=== PATIENT | female | born 1950 | race Caucasian/White ===

== ENCOUNTER 2018-09-19 19:17 | Inpatient (IN) | payer MEDICARE, OTHER ==
[~2018-09-19] VITALS: Ht 170.2 cm; Wt 117.5 kg
--- NOTE | 2018-09-19 20:14 | PHYS DOC ---
Adult General Chief Complaint Chief Complaint: PSYCH EVALUATION HPI HPI Patient is a 68-year-old female who presents for medical clearance for [facility]. Nursing facility the patient presents from reportedly is seeking some adjustment the patient's medications. Patient denies any thoughts of self-harm or harming others. She denies any chest pain or shortness of breath. Additional history is somewhat limited as patient is poor historian.[] Review of Systems Review of Systems Constitutional: Denies fever or chills [] Respiratory: Denies cough or shortness of breath [] Cardiovascular: No additional information not addressed in HPI [] GI: Denies abdominal pain, nausea, vomiting or diarrhea [] Neurologic: Denies headache, focal weakness or sensory changes [] All other systems were reviewed and found to be within normal limits, except as documented in this note. Physical Exam Physical Exam Constitutional: Well developed, well nourished, no acute distress, non-toxic appearance. [] HENT: Normocephalic, atraumatic, bilateral external ears normal, oropharynx moist, no oral exudates, nose normal. [] Eyes: PERRLA, EOMI, conjunctiva normal, no discharge. [] Neck: Normal range of motion, no tenderness, supple, no stridor. [] Cardiovascular: Regular rate and rhythm[] Lungs & Thorax: Bilateral breath sounds clear to auscultation [] Abdomen: Bowel sounds normal, soft, no tenderness. [] Skin: Warm, dry, no erythema, no rash. [] Extremities: No tenderness, no cyanosis, no clubbing, ROM intact. [] Neurologic: Alert and oriented X 3, no focal deficits noted. [] EKG EKG EKG demonstrates normal sinus rhythm with rate of 78.[] Radiology/Procedures Radiology/Procedures [] Course & Med Decision Making Course & Med Decision Making Pertinent Labs and Imaging studies reviewed. (See chart for details) [] Dragon Disclaimer Dragon Disclaimer This electronic medical record was generated, in whole or in part, using a voice recognition dictation system. Departure Departure: Impression: Primary Impression: Medical clearance for psychiatric admission Disposition: ADMITTED INPATIENT Admitting Physician: Other (Dr. Fofana) Condition: STABLE Referrals: KRISTI WASHINGTON DO (PCP) CYRIL LIMA Jr., DO September 19, 2018 20:14
[2018-09-19 20:46] LABS: BASO # 0.1 x10^3/uL (0.0-0.2); BASO % 1 % (0-3); EOS # 0.1 x10^3/uL (0.0-0.7); EOS % 1 % (0-3); HEMATOCRIT 41.8 % (36.0-47.0); HEMOGLOBIN 13.1 g/dL (12.0-15.5); LYMPH # 1.4 x10^3/uL (1.0-4.8); LYMPH % 14 % (24-48); MEAN CORPUSCULAR HEMOGLOBIN 26 pg (25-35); MEAN CORPUSCULAR HGB CONC 31 g/dL (31-37); MEAN CORPUSCULAR VOLUME 83 fL (79-100); MONO # 0.7 x10^3/uL (0.0-1.1); MONO % 8 % (0-9); NEUT # 7.4 x10^3uL (1.8-7.7); NEUT % 76 % (31-73); PLATELET COUNT 237 x10^3/uL (140-400); RED BLOOD COUNT 5.05 x10^6/uL (3.50-5.40); RED CELL DISTRIBUTION WIDTH 17.9 % (11.5-14.5); WHITE BLOOD COUNT 9.7 x10^3/uL (4.0-11.0)
--- NOTE | 2018-09-19 20:59 | EKG ---
[address] [address] Test Date: 2018-09-19 Test Time: 20:13:01 Pat Name: KADE ELIZONDO Department: Room: Gender: F [employer] Consultant: : [id number] Requested By: CYRIL LIMA Order Number: [id number] Reading MD: Measurements Intervals [place] Rate: 78 P: 35 ND: 182 QRS: 16 QRSD: 86 T: 74 QT: 380 QTc: 437 Interpretive Statements SINUS RHYTHM QRS(T) CONTOUR ABNORMALITY CONSIDER ANTEROLATERAL MYOCARDIAL DAMAGE POSSIBLY ABNORMAL ECG RI6.01 No previous ECG available for comparison
[2018-09-19 21:02] LABS: ALBUMIN 3.3 g/dL (3.4-5.0); ALBUMIN/GLOBULIN RATIO 0.7 (1.0-1.7); CALCIUM 9.2 mg/dL (8.5-10.1); CREATININE 1.1 mg/dL (0.6-1.0); GFR 49.1; POTASSIUM 3.6 mmol/L (3.5-5.1); TOTAL BILIRUBIN 0.2 mg/dL (0.2-1.0); TOTAL PROTEIN 7.9 g/dL (6.4-8.2)
[2018-09-19 21:35] LABS: BARBITURATES NEG (NEG); BENZODIAZEPINES NEG (NEG); CANNABINOIDS NEG (NEG); COCAINE NEG (NEG); METHADONE NEG (NEG); OPIATES NEG (NEG); PHENCYCLIDINE NEG (NEG)
[2018-09-19 21:42] LABS: AMPHETAMINE/METHAMPHETAMINE NEG (NEG)
[2018-09-19 21:51] LABS: BILIRUBIN,URINE NEG (NEG); CLARITY,URINE HAZY; COLOR,URINE YELLOW; GLUCOSE,URINE NEG (NEG); NITRITE,URINE NEG (NEG); UROBILINOGEN,URINE 0.2 mg/dL (0.2 mg/dL)
[2018-09-19 21:52] LABS: BACTERIA,URINE 0 /HPF (0-FEW); HYALINE CASTS, URINE OCC /HPF; RBC,URINE 0 /HPF (0-2); SQUAMOUS EPITHELIAL CELL,UR OCC /LPF
[2018-09-19 22:50] VITALS: BP 141/86
[2018-09-19] MEDS ORDERED: MAG HYDROX/AL HYDROX/SIMETH 30 ML ORAL.SUSP PO PRN (23:15)
[2018-09-19] MEDS ORDERED: MAGNESIUM HYDROXIDE 2,400 MG/30 ML ORAL.SUSP. PO PRN (23:15)
[2018-09-19] MEDS ORDERED: METHYL SALICYLATE/MENTHOL TOPICAL OINTMENT 29GM TUBE. TP PRN (23:15)
[2018-09-19] MEDS ORDERED: ACETAMINOPHEN 325 MG TABLET PO PRN (23:15)
--- NOTE | 2018-09-19 23:29 | NUR ---
Admission Note with Justification for Admission to [facility] Patient admitted to [facility] for protective oversight for emergency stabilization of acute psychiatric crisis. Pt admitted from: Hospital ER Mode of arrival: EMS Accompanied By: [facility] Staff Precipitating behaviors that initiated intake and admission:Refusing to do cares on own, hitting head on wall. Argumentative, putting self on floor. Description of failure of out patient attempts at stabilization in previous setting list behavior and medication trials: Behaviors and assessment findings upon admission: Plan: Admit for protective oversight for adjustment and stabilization of medications, behaviors and mood. Intense treatment regimen including groups, medication adjustments, therapy, consistent regimen for ADL's, self care, and sleep hygiene. Daily monitoring by Inpatient staff, Psychiatry, and Medical Physician. Addendum: 09/19/18 at 2338 by TAYO VELASCO RN Description of failure of out patient attempts at stabilization in previous setting list behavior and medication trials:Treated UTI, SW Visit, Labs Behaviors and assessment findings upon admission: Patient was compliant with cares and assessment upon arrival. The patient is alert to location, date and self. The patient requested a box lunch. The patient is currently laying in bed eating. Plan: Admit for protective oversight for adjustment and stabilization of medications, behaviors and mood. Intense treatment regimen including groups, medication adjustments, therapy, consistent regimen for ADL's, self care, and sleep hygiene. Daily monitoring by Inpatient staff, Psychiatry, and Medical Physician.
[2018-09-20] MEDS ORDERED: IPRA3AMP29 NEB ×2 (00:23→00:24)
[2018-09-20] MEDS ORDERED: PREG50CA PO (00:24)
[2018-09-20] MEDS ORDERED: ASPI-630 PO (00:24)
[2018-09-20] MEDS ORDERED: ONDA4TAB7 PO (00:24)
[2018-09-20] MEDS ORDERED: LEVO200T5 PO (00:24)
[2018-09-20] MEDS ORDERED: INSU100I27 SQ (00:24)
[2018-09-20] MEDS ORDERED: LEVO50TA5 PO (00:24)
[2018-09-20] MEDS ORDERED: INSU100I17 SQ (00:24)
[2018-09-20] MEDS ORDERED: FURO40TA4 PO (00:24)
[2018-09-20] MEDS ORDERED: VENL150C PO (00:24)
[2018-09-20] MEDS ORDERED: BACL10TA PO (00:24)
[2018-09-20] MEDS ORDERED: SITA100T PO (00:24)
[2018-09-20] MEDS ORDERED: CARB1TAB47 PO (00:24)
[2018-09-20] MEDS ORDERED: FAMO20TA5 PO (00:24)
[2018-09-20] MEDS ORDERED: ACET500T68 PO (00:24)
[2018-09-20] MEDS ORDERED: SALI44.3 MM (00:24)
[2018-09-20] MEDS ORDERED: CAPS42.52 TP (00:24)
[2018-09-20] MEDS ORDERED: FEXO180T16 PO (00:24)
[2018-09-20] MEDS ORDERED: MULT-236 PO (00:24)
[2018-09-20] MEDS ORDERED: APIX2.5T PO (00:24)
[2018-09-20] MEDS ORDERED: POTA10TA10 PO (00:24)
[2018-09-20] MEDS ORDERED: MELO15TA23 PO (00:24)
[2018-09-20] MEDS ORDERED: UMEC62.5 IH (00:24)
[2018-09-20] MEDS ORDERED: GUAI5SYR PO (00:24)
[2018-09-20] MEDS ORDERED: VENL75CA PO (00:24)
[2018-09-20] MEDS ORDERED: MAG30ORA2 PO (00:24)
[2018-09-20] MEDS ORDERED: DEXT15DR5 OP (00:24)
[2018-09-20] MEDS ORDERED: ALBUTEROL SULFATE 2.5 MG/3 ML NEBU. NEB PRN (00:45)
[2018-09-20] MEDS ORDERED: guaiFENesin DM 200MG/20MG 10 ML SYRUP PO PRN (00:45)
[2018-09-20] MEDS ORDERED: ONDANSETRON ODT 4 MG TAB.RAPDIS PO PRN (00:45)
[2018-09-20] MEDS ORDERED: MAG HYDROX/AL HYDROX/SIMETH 30 ML ORAL.SUSP PO PRN (00:45)
[2018-09-20] MEDS ORDERED: POLYVINYL ALCOHOL 1.4% OPHTH SOLUTION 15ML BOTTLE. OU PRN (02:00)
[2018-09-20] MEDS ORDERED: CAPSAICIN 0.025% TOPICAL CREAM 60GM TUBE. TP PRN (02:00)
[2018-09-20] MEDS: LEVOTHYROXINE 50 MCG TABLET PO SCH (05:35)
[2018-09-20] MEDS: LEVOTHYROXINE 100 MCG TABLET PO SCH (05:35)
[2018-09-20 06:21] VITALS: BP 159/83
[2018-09-20] MEDS: IPRATRPIUM/ALBUTEROL 0.5/2.5MG 3 ML NEBU. NEB SCH ×4 (08:00→20:32)
[2018-09-20] MEDS: MULTIVITAMIN with MINERAL TABLET. PO SCH ×2 (08:15→20:29)
[2018-09-20] MEDS: APIXABAN 2.5 MG TABLET PO SCH ×2 (08:15→20:29)
[2018-09-20] MEDS: FUROSEMIDE 40 MG TABLET PO SCH (08:15)
[2018-09-20] MEDS: POTASSIUM CHLORIDE 10 MEQ TABLET.ER. PO SCH (08:15)
[2018-09-20] MEDS: VENLAFAXINE 75 MG TABLET. PO SCH ×3 (08:15→20:30)
[2018-09-20] MEDS: ASPIRIN 81 MG TAB.CHEW PO SCH (08:15)
[2018-09-20] MEDS: CARBIDOPA/LEVODOPA 25/100MG TABLET PO SCH ×4 (08:16→20:29)
[2018-09-20] MEDS: PREGABALIN 50 MG CAPSULE PO SCH ×3 (08:16→20:29)
[2018-09-20] MEDS: BACLOFEN 10 MG TABLET PO SCH ×2 (08:16→20:29)
[2018-09-20] MEDS: MELOXICAM 15 MG TABLET. PO SCH (08:16)
[2018-09-20] MEDS: LINAGLIPTIN 5 MG TABLET PO SCH (08:16)
[2018-09-20] MEDS: INSULIN LISPRO 300 UNITS/3 ML INSULN.PEN. SQ SCH ×3 (08:19→17:22)
[2018-09-20] MEDS: SALIVA STIMULANT AGENT 44ML SPRAY BOTTLE. MM SCH ×5 (08:19→20:30)
[2018-09-20] MEDS: INSULIN GLARGINE 300 UNITS/3 ML INSULN.PEN. SQ SCH ×2 (08:28→20:34)
[2018-09-20] MEDS ORDERED: NON FORMULARY ITEM (Venlafaxine Hcl (Effexor Xr) 150 MG) PO SCH (09:00)
[2018-09-20] MEDS ORDERED: NON FORMULARY ITEM (Umeclidinium Bromide (Incruse Ellipta) 62.5 MCG) IH SCH (09:00)
[2018-09-20] MEDS ORDERED: NON FORMULARY ITEM (Venlafaxine Hcl (Effexor Xr) 75 MG) PO SCH (09:00)
--- NOTE | 2018-09-20 11:14 | NUR ---
PSYCHOSOCIAL ASSESSMENT ADMISSION DATE: 09/19/18 CONTACT INFORMATION: DPOA/Guardian Contact Name: None Contact Address: Contact Phone #: ETHNIC ORIGIN: REASONS FOR ADMISSION: Agitated, Self Harm, and Poor Impulse Control ADDITIONAL ADMISSION COMMENTS: Per pt. intake, pt. was hitting head against the wall when staff encouraged her to do her own ADLs, argumentative, puts herself on floor when she doesn't get her way, hits herself in the head, and agitated. REASON FOR ADMISSION IN PATIENT/FAMILY'S OWN WORDS: Pt. stated, "I don't know." "They just said they wanted me to come to [place]." "I didn't want to go." "I was just upset with this one." "I just verbally got upset." PATIENT/FAMILY EXPECTATIONS FOR ADMISSION: Per pt., "To see if there is anything I'm taking that I shouldn't be." LIVING SITUATION: [facility] Contact Name: [facility] Contact Address: [address] [place] [address] Contact Phone #: [phone] Contact Fax #: [phone] FAMILY RELATIONS: Marital Status: Single # of Marriages: 0 # of Children: 0 [facility] Family Support: Additional Comments r/t Family: SIGNIFICANT PSYCHIATRIC/MEDICAL HISTORY: Psychiatric/Treatment History: Pt. reports she has "ADHD, persistent anxieties, and depression." She reports she was diagnosed "a long time ago." She shared "a year or two ago" she had inpatient treatment at "[facility]" for "three weeks". Pertinent Family History: "I think my dad did." She then clarified she believes he had both anxiety and depression. HISTORICAL DATA: Childhood Environment: "Lousy, because everybody thought my brother was good and I wasn't." Pt. reports she grew up on a "farm" with her mother, father, and brother. Pt. brother is still living in [place], [place], and the two have a "good" relationship. 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 went on to share she grew up attending "[employer]" and "[employer]." Sexual orientation: Heterosexual Educational Level: Pt. reports she graduated from "[employer]" with a "BGS in human development." Past/Present Interests/Hobbies: Pt. interest include "Christy" her stuffed monkey and shared she also has a baby doll named "Christy" and "working on my tablet." Financial support/resources: Disability Monthly income: Unknown - Pt. reports she has $62.00 a month after her facility takes out their portion. "That's not enough to live on." Person handling finances: Staff at [facility] Do you have a history of legal problems: N Cultural considerations: None SOCIAL RELATIONSHIPS-CURRENT/PAST: Psychiatrist: None PCP: Dr. Putnam Counselor/Therapist: Carmenza [facility]: None Support Group: None Department Sales Manager/Heel Boom Operator: NATHALIE Larkin at [facility] Other relationships: None STRENGTHS & WEAKNESSES: Patient's strengths: Good verbal skills, Stable living arrangement, Education level, and Approachable Patient's weaknesses: Impulsive and a Harm to Self PRELIMINARY PLAN OF TREATMENT: Preliminary plan: Promote Coping Skill, Medication Stabilization, Monitor Med Effects, Control abnormal behavior, and Decrease Outbursts DISCHARGE PLANNING: Discharge planning/disposition: Current Living Arrangement ADDITIONAL INFORMATION: Pt. was able to supply the information for this assessment. Pt. shared, "For me to have the best diabetic test done, I need to have breakfast at a certain time." She requested she have breakfast between 8:00 and 8:30. Pt. 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
--- NOTE | 2018-09-20 12:02 | NUR ---
NATHALIE left msg. for NATHALIE Larkin at [facility], to share contact information and pt. progress.
[2018-09-20 12:50] LABS: THYROID STIM HORMONE (TSH) 10.634 uIU/mL (0.358-3.740)
--- NOTE | 2018-09-20 13:31 | NUR ---
Nursing Note Pt was in dining room this am for assessment and medication administration. pt was compliant with her medications but wanted them read one by one and what they are for told to her. went over the medications with her, and pt took them with pudding with no problems. pt states she has to have the pudding to be able to swallow the pills. pt states her hands are shaky and she complains that she cannot eat or feed herself at times and wants staff to feed her. pt is capable of doing it herself per physical therapy. pt has a monkey (monica) that she keeps and states its her "baby girl". pt states she is allergic to artificial sugar and states the only snack she can have is fruit loops. Per physical therapy, notes from facility state pt is independent doing things such as putting on her clothing, standing up and wiping her bottom herself, and that it is a behavior that she says she cannot do it. pt needs encouragement to do things herself. today pt was in restroom and urinated, and states she needs to be wiped. handed pt wet wipes and pt states she doesnt do it good enough. encouraged pt to try again and eventually she got it cleaned up herself. pt has scab on her right lateral foot that was cleaned and covered with foam today. pt has bilateral edema. pt gets agitated when asked to do things. no other behaviors noted thus far. will continue to monitor. freddy hicks.
[2018-09-20 16:08] VITALS: BP 138/88
[2018-09-20 19:07] LABS: THYROXINE 8.9 ug/dL (4.5-12.0)
[2018-09-20] MEDS: CETIRIZINE HCL 10 MG TABLET PO SCH (20:31)
[2018-09-20] MEDS: FAMOTIDINE 20 MG TABLET PO SCH (20:31)
--- NOTE | 2018-09-20 22:02 | PDOC ---
Exam Note: Bryce Note: Please also refer to the separate dictated note~for this date of service dictated separately. Discussed the patient with Nursing staff reviewed the chart.~Reviewed interim history and current functioning. Reviewed vital signs,~Labs/ Radiology~and current medications noted below. Continue current treatment with the changes noted in the dictated addendum note Assessment: Vital Signs: Vital Signs Date Time Temp Pulse Resp B/P (MAP) Pulse Ox O2 Delivery O2 Flow Rate FiO2 09/20/18 20:35 96 Room Air 09/20/18 16:08 97.6 91 22 138/88 (105) I&O Intake and Output 09/20/18 07:00 # Voids 1 Labs: Laboratory Tests Test 09/20/18 06:35 09/20/18 07:22 09/20/18 11:23 09/20/18 17:18 Glucose (Fingerstick) 189 mg/dL (70-99) H 174 mg/dL (70-99) H 195 mg/dL (70-99) H 163 mg/dL (70-99) H Test 09/20/18 19:29 Glucose (Fingerstick) 194 mg/dL (70-99) H Current Medications: Meds: Current Medications Acetaminophen (Tylenol) 650 mg PRN Q6HRS PRN PO PAIN / TEMP; Start 09/19/18 at 23:15; Stop 09/20/18 at 01:50; Status DC Multi-Ingredient Ointment (Analgesic [place]) 1 wilfredo PRN QID PRN TP MUSCLE PAIN; Start 09/19/18 at 23:15 Al Hydroxide/Mg Hydroxide (Mylanta Plus Xs) 15 ml PRN AFTMEALHC PRN PO DYSPEPSIA; Start 09/19/18 at 23:15; Stop 09/20/18 at 07:15; Status DC Magnesium Hydroxide (Milk Of Magnesia) 2,400 mg PRN QHS PRN PO CONSTIPATION; Start 09/19/18 at 23:15 Non-Formulary Medication (Venlafaxine Hcl (Effexor Xr)) 75 mg DAILY PO ; Start 09/20/18 at 09:00; Stop 09/20/18 at 09:00; Status DC Non-Formulary Medication (Venlafaxine Hcl (Effexor Xr)) 150 mg DAILY PO ; Start 09/20/18 at 09:00; Stop 09/20/18 at 09:00; Status DC Apixaban (Eliquis) 2.5 mg BID PO Last administered on 09/20/18at 20:29; Start 09/20/18 at 09:00 Guaifenesin (Robitussin Dm) 10 ml PRN Q4HRS PRN PO COUGH; Start 09/20/18 at 00:45 Albuterol Sulfate (Ventolin) 2.5 mg PRN TID PRN NEB SHORTNESS OF BREATH; Start 09/20/18 at 00:45 Albuterol/ Ipratropium (Duoneb) 3 ml RTQID NEB Last administered on 09/20/18at 20:32; Start 09/20/18 at 08:00 Al Hydroxide/Mg Hydroxide (Mylanta Plus Xs) 15 ml PRN Q4HRS PRN PO DYSPEPSIA; Start 09/20/18 at 00:45 Pregabalin (Lyrica) 50 mg TID PO Last administered on 09/20/18 20:29; Start 09/20/18 at 09:00 Saliva Substitute (Biotene Moisturizing Mouth) 1 spray QID MM ; Start 09/20/18 at 09:00 Acetaminophen (Tylenol) 500 mg PRN Q4HRS PRN PO PAIN / TEMP; Start 09/20/18 at 00:45 Aspirin (Children'S Aspirin) 81 mg DAILYWBKFT PO Last administered on 09/20/18at 08:15; Start 09/20/18 at 08:00 Baclofen (Lioresal) 10 mg BID PO Last administered on 09/20/18at 20:29; Start 09/20/18 at 09:00 Capsaicin (Zostrix) 1 wilfredo PRN BID PRN TP PAIN; Start 09/20/18 at 02:00 Carbidopa/Levodopa (Sinemet 25/100) 1.5 tab QID PO Last administered on 09/20/18at 20:29; Start 09/20/18 at 09:00 Artificial Tears (Artificial Tears) 1 drop PRN QID PRN OU DRY EYES; Start 09/20/18 at 02:00 Famotidine (Pepcid) 20 mg QHS PO Last administered on 09/20/18at 20:31; Start 09/20/18 at 21:00 Cetirizine HCl (ZyrTEC) 10 mg QHS PO Last administered on 09/20/18 20:31; Start 09/20/18 at 21:00 Furosemide (Lasix) 40 mg DAILY PO Last administered on 09/20/18 08:15; Start 09/20/18 at 09:00 Insulin Human Lispro (HumaLOG) 16 units TIDAC SQ Last administered on 09/20/18 17:22; Start 09/20/18 at 07:30 Insulin Glargine (Lantus) 28 units BID SQ Last administered on 09/20/18 20:34; Start 09/20/18 at 09:00 Levothyroxine Sodium (Synthroid) 50 mcg DAILY06 PO Last administered on 09/20/18 05:35; Start 09/20/18 at 06:00 Levothyroxine Sodium (Synthroid) 200 mcg DAILY06 PO Last administered on 09/20/18 05:35; Start 09/20/18 at 06:00 Meloxicam (Mobic) 15 mg DAILY PO Last administered on 09/20/18 08:16; Start 09/20/18 at 09:00 Multivitamins/ Calcium (Thera-M Plus) 1 tab BID PO Last administered on 09/20/18 20:29; Start 09/20/18 at 09:00 Ondansetron HCl (Zofran Odt) 4 mg PRN TID PRN PO NAUSEA; Start 09/20/18 at 00:45 Potassium Chloride (Klor-Con) 10 meq DAILYWBKFT PO Last administered on 09/20/18 08:15; Start 09/20/18 at 08:00 Linagliptin (Tradjenta) 5 mg DAILY PO Last administered on 09/20/18 08:16; Start 09/20/18 at 09:00 Non-Formulary Medication (Umeclidinium [place] (Incruse Ellipta)) 62.5 mcg DAILY IH ; Start 09/20/18 at 09:00; Stop 09/20/18 at 09:00; Status DC Venlafaxine HCl (Effexor) 75 mg TID PO Last administered on 09/20/18 20:30; Start 09/20/18 at 09:00 Active Scripts Active Reported Arthritis Pain Relief (Capsaicin) 42.5 Gm Cream..g. 42.5 Gm TP PRN BID PRN Guaifenesin Dm Syrup (Guaifenesin/Dextromethorphan) 5 Ml Syrup 10 Ml PO PRN Q4HRS PRN Zofran (Ondansetron Hcl) 4 Mg Tablet 4 Mg PO PRN TID PRN Mag-Al Plus Xs Suspension (Mag Hydrox/Al Hydrox/Simeth) 30 Ml Oral.susp 15 Ml PO PRN Q4HRS PRN Artificial Tears Eye Drops (Dextran 70/Hypromellose) 15 Ml Drops 1 Drop OP PRN QID PRN Acetaminophen 500 Mg Tablet 500 Mg PO PRN Q4HRS PRN Duoneb 0.5-3(2.5) Mg/3 Ml (Albuterol/Ipratropium) 3 Ml Ampul.neb 3 Ml NEB PRN TI D PRN Effexor Xr (Venlafaxine Hcl) 75 Mg Cap.er.24h 75 Mg PO DAILY Effexor Xr (Venlafaxine Hcl) 150 Mg Cap.er.24h 150 Mg PO DAILY Potassium Chloride 10 Meq Tablet.er 10 Meq PO DAILY Meloxicam 15 Mg Tablet 15 Mg PO DAILY Lyrica (Pregabalin) 50 Mg Capsule 50 Mg PO TID Levothyroxine Sodium 50 Mcg Tablet 50 Mcg PO DAILYAC Levothyroxine Sodium 200 Mcg Tablet 200 Mcg PO DAILYAC Januvia (Sitagliptin Phosphate) 100 Mg Tablet 100 Mg PO DAILY Incruse Ellipta (Umeclidinium [place]) 62.5 Mcg Blst.w.dev 62.5 Mcg IH DAILY Furosemide 40 Mg Tablet 40 Mg PO DAILY Fexofenadine Hcl 180 Mg Tablet 60 Mg PO QHS Famotidine 20 Mg Tablet 20 Mg PO QHS Eliquis (Apixaban) 2.5 Mg Tablet 2.5 Mg PO BID Daily Vitamin + Iron (Multivitamins With Iron) 1 Each Tablet 1 Each PO BID Carbidopa-Levo 25-100 Mg Odt (Carbidopa/Levodopa) 1 Each Tab.rapdis 1.5 Tab PO QID Biotene Moisturizing Mouth (Saliva Stimulant Agents Comb.3) 44.3 Ml [place] 1 Wilfredo MM QID Baclofen 10 Mg Tablet 10 Mg PO BID Aspirin 81 Mg Tab.chew 81 Mg PO DAILY Novolog Flexpen (Insulin Aspart) 100 Unit/1 Ml Insuln.pen 16 Unit SQ TIDAC Levemir Flextouch (Insulin Detemir) 100 Unit/1 Ml Insuln.pen 28 Unit SQ BID Duoneb 0.5-3(2.5) Mg/3 Ml (Albuterol/Ipratropium) 3 Ml Ampul.neb 3 Ml NEB QID I have reviewed the current psychotropics carefully including drug interactions. Risk benefit ratio favors no change other than as noted in my dictated progress note. Diagnosis: Problems: (1) Anxiety disorder (2) Major depressive disorder, recurrent episode (3) Impulse control disorder (4) Parkinson's disease MONICA MCWILLIAMS MD September 20, 2018 22:02
--- NOTE | 2018-09-20 22:41 | NUR ---
Nursing Note The patient was located in the day room for her assessment and medication pass. The patient was compliant with her medication and took them whole in chocolate pudding. the patient was appropriate during interactions and was very interactive and pleasant during her assessment. The patient is currently sleeping in her room.
[2018-09-21] MEDS: LEVOTHYROXINE 100 MCG TABLET PO SCH (05:35)
[2018-09-21] MEDS: LEVOTHYROXINE 50 MCG TABLET PO SCH (05:35)
[2018-09-21] MEDS: IPRATRPIUM/ALBUTEROL 0.5/2.5MG 3 ML NEBU. NEB SCH ×4 (05:40→20:57)
[2018-09-21 05:48] VITALS: BP 143/72
--- NOTE | 2018-09-21 06:46 | CONS ---
DATE OF CONSULTATION: 09/20/2018 REASON FOR CONSULTATION: Consult for medical management. HISTORY OF PRESENT ILLNESS: The patient is a 68-year-old female patient, a resident at the [facility] [place], who was admitted on account of hitting head against the wall when staff encouraged her to do her own ADLs, argumentative, puts herself on the floor when she does not get her way, hits herself on the head, all this in a background of impulse control disorder and psychosis that is unspecified. PAST MEDICAL HISTORY: Her past medical history is significant for Parkinson's disease, fibromyalgia, oropharyngeal dysphagia, hyperlipidemia, atrial fibrillation, hypertension, gastroesophageal reflux disease, obesity, type 2 diabetes, low back pain, pain in her right knee, hypothyroidism, chronic obstructive pulmonary disease, and normal pressure hydrocephalus. She has also cognitive communication deficits and she has history of falling, muscle weakness, difficulty walking. PAST SURGICAL HISTORY: Past surgical history is significant for bilateral cataract extraction and cholecystectomy. FAMILY HISTORY: Unremarkable. SOCIAL HISTORY: She is single, never , has no children of her own. She is a resident at [facility]. She is mostly wheelchair bound. ALLERGIES: She is ALLERGIC TO INFLUENZA VIRUSES, SUGAR SUBSTITUTE, WHOLE WHEAT, BACITRACIN, NYLON and SOYBEAN. MEDICATIONS: She is currently on fexofenadine 180 mg once a day, ipratropium bromide/albuterol sulfate 0.5/2.5 mg 3 mL by nebulizer 4 times a day, and as needed Incruse Ellipta 62.5 mcg inhalation once a day, baclofen 10 mg twice a day, apixaban 2.5 mg twice a day, aspirin 81 mg once a day, meloxicam 15 mg daily, acetaminophen 500 mg every 4 hours, pregabalin 50 mg 3 times a day, venlafaxine for Effexor XR 150 mg once daily and she is also on 75 mg daily, carbidopa/levodopa 25/100 one half tablet 4 times a day, potassium chloride 10 mEq once a day, furosemide 40 mg daily. She is on Robitussin DM 10 mL every 4 hours. She is on dextran hypromellose artificial tears 1 drop to both eyes 4 times a day, and Mylanta 15 mL every 4 hours, ondansetron 4 mg 3 times a day, famotidine 20 mg at bedtime. She is on sitagliptin for Januvia 100 mg once a day, insulin NovoLog FlexPen 16 units before meals and she is on Levemir insulin 28 units twice a day. She is on levothyroxine sodium 50 mcg daily, capsaicin cream apply topically twice a day, multivitamin with iron 1 tablet once a day, saliva stimulation agent for biotin moisturizing mouth 1 application 4 times a day. PHYSICAL EXAMINATION: GENERAL: When I saw her this afternoon, she was sitting comfortably in her wheelchair, in no apparent respiratory distress. She was somewhat pale, no jaundice, cyanosis, or thyromegaly. No jugular venous distension. No lower limb edema. VITAL SIGNS: Her heart rate was 70, blood pressure was 159/83, temperature was 97.8, respiratory rate was 20 and oxygen saturation was 98% on room air. HEENT: Examination of the head, eyes, ears, nose and throat showed normocephalic, atraumatic. NECK: Supple. HEART: Showed normal first and second heart sounds with no gallop, rub or murmur. CHEST: Clear to auscultation. No crepitation or rhonchi. ABDOMEN: Markedly distended, soft, nontender. NEUROLOGIC: She is awake, alert, responding appropriately. All her cranial nerves are intact. EXTREMITIES: She moves extremities spontaneously, although she has marked parkinsonian features with reduced blinking mask face and pill-rolling tremor. LABORATORY DATA: Her white cell count was 9700, hemoglobin 13, hematocrit 42, MCV 83 and platelet count 237,000 with normal manual differential. Her chemistry showed a serum sodium 142, potassium 3.6, chloride 103, bicarbonate 31, anion gap of 8, BUN 19, creatinine 1.1, estimated GFR was 49 mL per minute. Her glucose was 145, calcium was 9.2, magnesium 2.3. Total bilirubin, AST, ALT, alkaline phosphatase were slightly elevated. Her total protein was 7.9, albumin 3.3. Her urinalysis showed the urine was yellow, hazy with the pH of 5, specific gravity 1.025. There was a trace of protein, negative for glucose, trace of ketones, negative for blood, nitrite and leukocyte esterase. There are no RBCs, 1-4 WBCs, and very few bacteria. Her tox screen was essentially negative. IMPRESSION AND PLAN: So, in summary, this is a 68-year-old female patient, who was admitted on account of hitting her head against the wall when staff encouraged her to do her own IADLs, ADLs, argumentative, puts herself on the floor when she does not get her way, she hit herself also in the head, all these in a background of impulse control disorder and psychosis that is unspecified. Medically, she has multitude of medical problems including Parkinson's disease, fibromyalgia, dysphagia, hyperlipidemia, atrial fibrillation, hypertension, gastroesophageal reflux disease, morbid obesity and type 2 diabetes mellitus, chronic obstructive pulmonary disease. All in all, she seemed to be medically stable. Obviously, I will follow all her lab works that are still pending at the time of this dictation and make any necessary recommendation. Thank you, Dr. Mendoza, for allowing me to participate in the care of this patient. TEODORO WU MD DR: MIKE/rosanna JOB#: [id number] / [id number]
[2018-09-21] MEDS: POTASSIUM CHLORIDE 10 MEQ TABLET.ER. PO SCH (07:56)
[2018-09-21] MEDS: FUROSEMIDE 40 MG TABLET PO SCH (07:57)
[2018-09-21] MEDS: CARBIDOPA/LEVODOPA 25/100MG TABLET PO SCH ×4 (07:57→19:47)
[2018-09-21] MEDS: MULTIVITAMIN with MINERAL TABLET. PO SCH ×2 (07:57→19:47)
[2018-09-21] MEDS: VENLAFAXINE 75 MG TABLET. PO SCH ×2 (07:57→19:56)
[2018-09-21] MEDS: APIXABAN 2.5 MG TABLET PO SCH ×2 (07:58→19:37)
[2018-09-21] MEDS: BACLOFEN 10 MG TABLET PO SCH ×2 (07:58→19:47)
[2018-09-21] MEDS: MELOXICAM 15 MG TABLET. PO SCH (07:58)
[2018-09-21] MEDS: ASPIRIN 81 MG TAB.CHEW PO SCH (07:58)
[2018-09-21] MEDS: LINAGLIPTIN 5 MG TABLET PO SCH (07:58)
[2018-09-21] MEDS: PREGABALIN 50 MG CAPSULE PO SCH ×3 (08:01→19:46)
[2018-09-21] MEDS: INSULIN GLARGINE 300 UNITS/3 ML INSULN.PEN. SQ SCH ×2 (08:04→19:54)
[2018-09-21] MEDS: SALIVA STIMULANT AGENT 44ML SPRAY BOTTLE. MM SCH ×4 (08:06→19:55)
[2018-09-21] MEDS: INSULIN LISPRO 300 UNITS/3 ML INSULN.PEN. SQ SCH ×3 (08:06→16:30)
--- NOTE | 2018-09-21 08:12 | HP ---
ADMIT DATE: 09/20/2018 PSYCHIATRIC ADMISSION HISTORY/EVALUATION This is a late entry 09/20/2018 covers elements not covered in my initial note 09/20/2018. SUBJECTIVE: I met with the patient at length evening of 09/20/2018. Discussed with nursing staff, reviewed the chart. Previously, I had discussed the patient with Anne Linda, software development coordinator after the patient was referred to us from the [facility] by her primary care physician, Dr. Putnam on account of dangerous, out of control, unmanageable behaviors at the facility. The patient was hitting her head against the wall when the staff encouraged her to do her own ADLs. She was argumentative. She was putting herself on the floor when she does not get her way and hitting herself in the head physically with the hands when frustrated. Behaviors were deemed dangerous, unmanageable, out of control, had failed outpatient psychiatric interventions resulting in this referral. CHIEF COMPLAINT: "I came here last night. I don't bang my head. I did not put myself on the floor, slipped. Yes, I have been depressed." The patient is cognitively fairly intact, very verbal and I had a lengthy visit with her at evening of 09/20/2018. HISTORY OF PRESENT ILLNESS: The patient has a history of progressively worsening symptoms of depression, anxiety, obsessiveness, irritability, and mood lability. She has been getting easily frustrated with worsening mood swings. No active suicidal or homicidal ideation. Cognitively, she has been reasonably intact. No clear history of bipolar disorder, but she does have mood swings and we will have to carefully reassess this during this hospitalization. PAST PSYCHIATRIC HISTORY: As above. MEDICAL HISTORY: Positive for Parkinson's disease, fibromyalgia, dysphagia, hyperlipidemia, history of falls, COPD, thyroid disease, atrial fibrillation, obesity, COPD, unspecified weakness, history of normal pressure hydrocephalus; cognitive communication deficits, pain in the left shoulder, right wrist, difficult walking, muscle weakness. ACCU-CHEK: Before meals and at bedtime. CODE STATUS: Full code. ALLERGIES: BACITRACIN, SOYBEAN, FLU SHOTS, NYLON. DIET: Mechanical soft, low concentrated sweets. AMBULATES: With standby assistance, walks with Dine per physical therapy with walk. Her UA is negative. CURRENT PSYCHOTROPICS: Effexor 225 mg a day. FAMILY HISTORY: Noncontributory. SOCIAL HISTORY: No history of alcohol, drug abuse, physical, sexual, or elder abuse. She is not known to be a perpetrator. She is single, never , has no children. 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 I have not verified this. No alcohol or drug abuse history. REACTION TO HOSPITALIZATION: The patient accepting of it. ASSETS: Supportive living at the above facility. MENTAL STATUS EXAM: The patient was seen individually evening of 09/20/2018. The patient is well oriented. Speech is coherent. She is in a wheelchair. She is very verbal, open, forthcoming. Mood is somewhat depressed, anxious. She is obsessive, at times hyperverbal, but fairly appropriate even with this. No active suicidal or homicidal ideation. Mood is anxious, somewhat depressed at times. Attention span short at times. Memory is reasonable. LABORATORY DATA: Reviewed. IMPRESSION: Major depressive disorder, recurrent; anxiety disorder, unspecified; rule out obsessive-compulsive disorder, rule out bipolar disorder, unspecified. Rest diagnoses as above. PLAN: Admit to geropsychiatry unit at [facility]. I will see the patient daily individually from a psychiatric standpoint. Medical followup with Dr. Ferreira. Continue current psychotropics with Effexor 225 mg a day. Observe baseline then make further adjustments as clinically indicated. Estimated length of stay 10-12 days with a plan to return [facility] the [facility] when stable. MAN Natali MCWILLIAMS MD DR: REAL/rosanna JOB#: [id number] / [id number]
--- NOTE | 2018-09-21 09:45 | NUR ---
WEEKLY ACTIVITY THERAPY NOTE Date of Admission: 09/19/2018 Date of AT Assessment: TBD Goal aimed: TBD Initial goal: TBD Weekly progress towards goal: NA Group participation level: minimal Weekly highlights: NA Behaviors observed: carries a toy monkey, manipulated stuffed monkey to follow a few exercise moves, wandered to different part of day room during group, shouted out categories answers from across the room Plan: meet/assess Pt Beneficial adaptations: TBD
--- NOTE | 2018-09-21 11:22 | NUR ---
NATHALIE spoke to Telma, admissions at [facility], to discuss pt. progress and discharge plan. Pt. has a tentative discharge date of 09/28/2018. Pt. facility would like OT/PT orders for pt. upon her return. Telma shared they will have social work students at their facility and perhaps they would be able to arrange some type of writing work for pt. to assist with.
--- NOTE | 2018-09-21 11:25 | NUR ---
WEEKLY NOTE Pt. eats 100% of her meals and sleeps an average of 4 hours. Pt. has been calm, compliant, and interactive. Pt. has not been self-harming. A CT scan of pt. head will be order. It was reported pt. would perhaps benefit from getting involved in some type of writing work to keep her mind busy. Medication continues to be modified and monitored. Pt. is scheduled to tentatively discharge on 09/28/[address] [facility].
[2018-09-21 15:36] VITALS: BP 131/78
--- NOTE | 2018-09-21 17:02 | NUR ---
Pt calm, compliant with meds floated in chocolate pudding. Pt has monkey that she keeps with her that keeps her calm. Refused lunch today because she didn't like the white bread. Sat out in dayroom most of the day, participated in group. Oriented x3.
[2018-09-21 17:11] LABS: HEMOGLOBIN A1C 7.1 % (4.8-5.6)
[2018-09-21] MEDS: CETIRIZINE HCL 10 MG TABLET PO SCH (19:37)
[2018-09-21] MEDS: FAMOTIDINE 20 MG TABLET PO SCH (19:47)
--- NOTE | 2018-09-21 22:28 | PDOC ---
Exam Note: Bryce Note: Please also refer to the separate dictated note~for this date of service dictated separately.~Patient seen individually. Discussed the patient with Nursing staff reviewed the chart.~Reviewed interim history and current functioning. Reviewed vital signs,~Labs/ Radiology~and current medications noted below. Continue current treatment with the changes noted in the dictated addendum note Assessment: Vital Signs: Vital Signs Date Time Temp Pulse Resp B/P (MAP) Pulse Ox O2 Delivery O2 Flow Rate FiO2 09/21/18 20:59 95 Room Air 09/21/18 15:36 97.6 90 18 131/78 (95) I&O Intake and Output 09/21/18 07:00 Intake Total 1200 ml Balance 1200 ml Intake Oral 1200 ml # Voids 1 Labs: Laboratory Tests Test 09/21/18 07:20 09/21/18 11:48 09/21/18 17:19 09/21/18 19:00 Glucose (Fingerstick) 161 mg/dL (70-99) H 172 mg/dL (70-99) H 120 mg/dL (70-99) H 219 mg/dL (70-99) H Current Medications: Meds: Current Medications Acetaminophen (Tylenol) 650 mg PRN Q6HRS PRN PO PAIN / TEMP; Start 09/19/18 at 23:15; Stop 09/20/18 at 01:50; Status DC Multi-Ingredient Ointment (Analgesic [place]) 1 wilfredo PRN QID PRN TP MUSCLE PAIN Last administered on 09/21/18at 05:58; Start 09/19/18 at 23:15 Al Hydroxide/Mg Hydroxide (Mylanta Plus Xs) 15 ml PRN AFTMEALHC PRN PO DYSPEPSIA; Start 09/19/18 at 23:15; Stop 09/20/18 at 07:15; Status DC Magnesium Hydroxide (Milk Of Magnesia) 2,400 mg PRN QHS PRN PO CONSTIPATION; Start 09/19/18 at 23:15 Non-Formulary Medication (Venlafaxine Hcl (Effexor Xr)) 75 mg DAILY PO ; Start 09/20/18 at 09:00; Stop 09/20/18 at 09:00; Status DC Non-Formulary Medication (Venlafaxine Hcl (Effexor Xr)) 150 mg DAILY PO ; Start 09/20/18 at 09:00; Stop 09/20/18 at 09:00; Status DC Apixaban (Eliquis) 2.5 mg BID PO Last administered on 09/21/18 19:37; Start 09/20/18 at 09:00 Guaifenesin (Robitussin Dm) 10 ml PRN Q4HRS PRN PO COUGH; Start 09/20/18 at 00:45 Albuterol Sulfate (Ventolin) 2.5 mg PRN TID PRN NEB SHORTNESS OF BREATH; Start 09/20/18 at 00:45 Albuterol/ Ipratropium (Duoneb) 3 ml RTQID NEB Last administered on 09/21/18 20:57; Start 09/20/18 at 08:00 Al Hydroxide/Mg Hydroxide (Mylanta Plus Xs) 15 ml PRN Q4HRS PRN PO DYSPEPSIA; Start 09/20/18 at 00:45 Pregabalin (Lyrica) 50 mg TID PO Last administered on 09/21/18 19:46; Start 09/20/18 at 09:00 Saliva Substitute (Biotene Moisturizing Mouth) 1 spray QID MM Last administered on 09/21/18 08:06; Start 09/20/18 at 09:00 Acetaminophen (Tylenol) 500 mg PRN Q4HRS PRN PO PAIN / TEMP; Start 09/20/18 at 00:45 Aspirin (Children'S Aspirin) 81 mg DAILYWBKFT PO Last administered on 09/21/18 07:58; Start 09/20/18 at 08:00 Baclofen (Lioresal) 10 mg BID PO Last administered on 09/21/18 19:47; Start 09/20/18 at 09:00 Capsaicin (Zostrix) 1 wilfredo PRN BID PRN TP PAIN; Start 09/20/18 at 02:00 Carbidopa/Levodopa (Sinemet 25/100) 1.5 tab QID PO Last administered on 09/21/18 19:47; Start 09/20/18 at 09:00 Artificial Tears (Artificial Tears) 1 drop PRN QID PRN OU DRY EYES; Start 09/20/18 at 02:00 Famotidine (Pepcid) 20 mg QHS PO Last administered on 09/21/18 19:47; Start 09/20/18 at 21:00 Cetirizine HCl (ZyrTEC) 10 mg QHS PO Last administered on 09/21/18 19:37; Start 09/20/18 at 21:00 Furosemide (Lasix) 40 mg DAILY PO Last administered on 09/21/18 07:57; Start 09/20/18 at 09:00 Insulin Human Lispro (HumaLOG) 16 units TIDAC SQ Last administered on 09/21/18 12:51; Start 09/20/18 at 07:30 Insulin Glargine (Lantus) 28 units BID SQ Last administered on 09/21/18 19:54; Start 09/20/18 at 09:00 Levothyroxine Sodium (Synthroid) 50 mcg DAILY06 PO Last administered on 09/21/18 05:35; Start 09/20/18 at 06:00 Levothyroxine Sodium (Synthroid) 200 mcg DAILY06 PO Last administered on 09/21/18 05:35; Start 09/20/18 at 06:00 Meloxicam (Mobic) 15 mg DAILY PO Last administered on 09/21/18 07:58; Start 09/20/18 at 09:00 Multivitamins/ Calcium (Thera-M Plus) 1 tab BID PO Last administered on 09/21/18 19:47; Start 09/20/18 at 09:00 Ondansetron HCl (Zofran Odt) 4 mg PRN TID PRN PO NAUSEA; Start 09/20/18 at 00:45 Potassium Chloride (Klor-Con) 10 meq DAILYWBKFT PO Last administered on 09/21/18 07:56; Start 09/20/18 at 08:00 Linagliptin (Tradjenta) 5 mg DAILY PO Last administered on 09/21/18 07:58; Start 09/20/18 at 09:00 Non-Formulary Medication (Umeclidinium [place] (Incruse Ellipta)) 62.5 mcg DAILY IH ; Start 09/20/18 at 09:00; Stop 09/20/18 at 09:00; Status DC Venlafaxine HCl (Effexor) 75 mg TID PO Last administered on 09/21/18 07:57; Start 09/20/18 at 09:00; Stop 09/21/18 at 11:33; Status DC Venlafaxine HCl (Effexor) 75 mg BID PO Last administered on 09/21/18at 19:56; Start 09/21/18 at 21:00; Stop 09/23/18 at 23:00 Venlafaxine HCl (Effexor) 75 mg DAILY PO ; Start 09/24/18 at 09:00; Stop 09/26/18 at 12:00 Duloxetine HCl (Cymbalta) 30 mg DAILY PO ; Start 09/22/18 at 09:00; Stop 09/29/18 at 12:00 Duloxetine HCl (Cymbalta) 60 mg DAILY PO ; Start 09/30/18 at 09:00 Active Scripts Active Reported Arthritis Pain Relief (Capsaicin) 42.5 Gm Cream..g. 42.5 Gm TP PRN BID PRN Guaifenesin Dm Syrup (Guaifenesin/Dextromethorphan) 5 Ml Syrup 10 Ml PO PRN Q4HRS PRN Zofran (Ondansetron Hcl) 4 Mg Tablet 4 Mg PO PRN TID PRN Mag-Al Plus Xs Suspension (Mag Hydrox/Al Hydrox/Simeth) 30 Ml Oral.susp 15 Ml PO PRN Q4HRS PRN Artificial Tears Eye Drops (Dextran 70/Hypromellose) 15 Ml Drops 1 Drop OP PRN QID PRN Acetaminophen 500 Mg Tablet 500 Mg PO PRN Q4HRS PRN Duoneb 0.5-3(2.5) Mg/3 Ml (Albuterol/Ipratropium) 3 Ml Ampul.neb 3 Ml NEB PRN TID PRN Effexor Xr (Venlafaxine Hcl) 75 Mg Cap.er.24h 75 Mg PO DAILY Effexor Xr (Venlafaxine Hcl) 150 Mg Cap.er.24h 150 Mg PO DAILY Potassium Chloride 10 Meq Tablet.er 10 Meq PO DAILY Meloxicam 15 Mg Tablet 15 Mg PO DAILY Lyrica (Pregabalin) 50 Mg Capsule 50 Mg PO TID Levothyroxine Sodium 50 Mcg Tablet 50 Mcg PO DAILYAC Levothyroxine Sodium 200 Mcg Tablet 200 Mcg PO DAILYAC Januvia (Sitagliptin Phosphate) 100 Mg Tablet 100 Mg PO DAILY Incruse Ellipta (Umeclidinium [place]) 62.5 Mcg Blst.w.dev 62.5 Mcg IH DAILY Furosemide 40 Mg Tablet 40 Mg PO DAILY Fexofenadine Hcl 180 Mg Tablet 60 Mg PO QHS Famotidine 20 Mg Tablet 20 Mg PO QHS Eliquis (Apixaban) 2.5 Mg Tablet 2.5 Mg PO BID Daily Vitamin + Iron (Multivitamins With Iron) 1 Each Tablet 1 Each PO BID Carbidopa-Levo 25-100 Mg Odt (Carbidopa/Levodopa) 1 Each Tab.rapdis 1.5 Tab PO QID Biotene Moisturizing Mouth (Saliva Stimulant Agents Comb.3) 44.3 Ml [place] 1 Wilfredo MM QID Baclofen 10 Mg Tablet 10 Mg PO BID Aspirin 81 Mg Tab.chew 81 Mg PO DAILY Novolog Flexpen (Insulin Aspart) 100 Unit/1 Ml Insuln.pen 16 Unit SQ TIDAC Levemir Flextouch (Insulin Detemir) 100 Unit/1 Ml Insuln.pen 28 Unit SQ BID Duoneb 0.5-3(2.5) Mg/3 Ml (Albuterol/Ipratropium) 3 Ml Ampul.neb 3 Ml NEB QID I have reviewed the current psychotropics carefully including drug interactions. Risk benefit ratio favors no change other than as noted in my dictated progress note. Diagnosis: Problems: (1) Anxiety disorder (2) Major depressive disorder, recurrent episode (3) Impulse control disorder (4) Parkinson's disease MONICA MCWILLIAMS MD September 21, 2018 22:28
[2018-09-22] MEDS: IPRATRPIUM/ALBUTEROL 0.5/2.5MG 3 ML NEBU. NEB SCH ×4 (05:43→20:47)
[2018-09-22 05:47] VITALS: BP 150/86
[2018-09-22] MEDS: LEVOTHYROXINE 50 MCG TABLET PO SCH (06:01)
[2018-09-22] MEDS: LEVOTHYROXINE 100 MCG TABLET PO SCH (06:01)
[2018-09-22] MEDS: INSULIN LISPRO 300 UNITS/3 ML INSULN.PEN. SQ SCH ×4 (07:30→17:05)
[2018-09-22] MEDS: CARBIDOPA/LEVODOPA 25/100MG TABLET PO SCH ×4 (07:56→19:56)
[2018-09-22] MEDS: APIXABAN 2.5 MG TABLET PO SCH ×2 (07:56→19:58)
[2018-09-22] MEDS: ASPIRIN 81 MG TAB.CHEW PO SCH (07:56)
[2018-09-22] MEDS: MELOXICAM 15 MG TABLET. PO SCH (07:56)
[2018-09-22] MEDS: BACLOFEN 10 MG TABLET PO SCH ×2 (07:56→19:58)
[2018-09-22] MEDS: LINAGLIPTIN 5 MG TABLET PO SCH (07:56)
[2018-09-22] MEDS: FUROSEMIDE 40 MG TABLET PO SCH (07:56)
[2018-09-22] MEDS: MULTIVITAMIN with MINERAL TABLET. PO SCH ×2 (07:56→19:57)
[2018-09-22] MEDS: POTASSIUM CHLORIDE 10 MEQ TABLET.ER. PO SCH (07:57)
[2018-09-22] MEDS: VENLAFAXINE 75 MG TABLET. PO SCH ×2 (07:57→19:57)
[2018-09-22] MEDS: DULoxetine HCL 30 MG CAPSULE.DR PO SCH (07:58)
[2018-09-22] MEDS: SALIVA STIMULANT AGENT 44ML SPRAY BOTTLE. MM SCH ×4 (07:58→21:00)
[2018-09-22] MEDS: PREGABALIN 50 MG CAPSULE PO SCH ×3 (07:59→19:58)
[2018-09-22] MEDS: INSULIN GLARGINE 300 UNITS/3 ML INSULN.PEN. SQ SCH ×2 (08:01→20:00)
--- NOTE | 2018-09-22 10:15 | NUR ---
Activity Therapy Assessment Completed based on observation, interview, and [facility] notes. Pt. was in the day room and agreeable to chat with therapist. Pt. stated she was 'doing better' and realizes that she needs to work on 'letting people know how I feel more quickly' while at [facility]. Pt. uses a wheelchair to ambulate, wears glasses, and carries a stuffed monkey named Christy. Pt. speaks in a clear, slow voice and sometimes uses the third person and refers to herself as 'Mommy' when talking to or about Christy. Pt. is unmarried with no children and lives at [facility]. 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 Pt. enjoys stuff animals and dolls, writing on her tablet, trivia, Bingo, and puzzles. Pt. talked at length about her two friends back in [place] and how much she misses having meals with them. Pt. wants to go home as soon as possible but is 'trying to remember that all places have problems'. Pt. has diabetes and multiple allergies- whole wheat, sugar substitutes, nylon and soybeans. According to notes, Pt. has a tendency to feign helplessness with personal care tasks and needs encouragement to do tasks independently. Pt. can be irritated with this redirection but is generally willing and friendly with staff and peers. Pt. is often around group, sleepy, but willing to engage with encouragement. Initial goal aimed to increase independence: Pt. will participate in at least one Activity Therapy group, at least moderately, per day.
[2018-09-22 15:58] VITALS: BP 124/86
--- NOTE | 2018-09-22 16:58 | NUR ---
Patient has been pleasant and cooperative this shift. No negative moods observed. Compliant with med pass. Takes meds whole in pudding. CT of head without contrast ordered per Dr. Reji figueroa.
[2018-09-22] MEDS: FAMOTIDINE 20 MG TABLET PO SCH (19:57)
[2018-09-22] MEDS: CETIRIZINE HCL 10 MG TABLET PO SCH (19:57)
--- NOTE | 2018-09-22 20:27 | PN ---
DATE: 09/21/2018 PSYCHIATRIC PROGRESS NOTE This late entry 09/21/2018 covers elements not covered in my initial note. SUBJECTIVE: I met with the patient in the evening of 09/21/2018 staffed at a treatment team meeting with the entire team in the morning. Reviewed her history at length, her education at and [employer] in creative writing. Discussed situation she could be involved whether she could still use her skills and focus on the positive attributes she still has Appetite 100%. Slept about 4 hours. She is not aggressive. REVIEW OF SYSTEMS: No active hallucinations. She carries the stuffed monkey with her, treats it like a baby. It is more of a calming effect on her. We will check a CT head and have a Neurology consult with Dr. Glover as well given her history of Parkinson's. REVIEW OF SYSTEMS: Impaired ambulation. No CV, , pulmonary, eye, ENT system symptoms on review. MENTAL STATUS EXAM: Reasonably oriented. Speech is coherent, abstraction fair, computation reasonable, language function intact, attention span short. Mood remains somewhat depressed, anxious. No suicidal or homicidal ideation. LABORATORY DATA: Reviewed. IMPRESSION: Major depressive disorder with psychotic features; anxiety disorder, unspecified; psychotic disorder, unspecified. PLAN: The patient is currently on Effexor 75 mg t.i.d. We will reduce it to b.i.d. for 3 days, then once a day for 3 days and stop it, and start Cymbalta 30 mg a day for 1 week and then 60 mg a day. Continue rest unchanged for now. MONICA MCWILLIAMS MD DR: REAL/rosanna JOB#: [id number] / [id number]
--- NOTE | 2018-09-22 22:37 | PDOC ---
Exam Note: Bryce Note: Please also refer to the separate dictated note~for this date of service dictated separately.~Patient seen individually. Discussed the patient with Nursing staff reviewed the chart.~Reviewed interim history and current functioning. Reviewed vital signs,~Labs/ Radiology~and current medications noted below. Continue current treatment with the changes noted in the dictated addendum note Assessment: Vital Signs: Vital Signs Date Time Temp Pulse Resp B/P (MAP) Pulse Ox O2 Delivery O2 Flow Rate FiO2 09/22/18 20:48 96 Room Air 09/22/18 15:58 97.8 97 18 124/86 (99) I&O Intake and Output 09/22/18 06:59 Intake Total 1080 ml Balance 1080 ml Intake Oral 1080 ml # Voids 1 Labs: Laboratory Tests Test 09/22/18 07:23 09/22/18 11:47 09/22/18 16:47 09/22/18 19:17 Glucose (Fingerstick) 108 mg/dL (70-99) H 211 mg/dL (70-99) H 154 mg/dL (70-99) H 182 mg/dL (70-99) H Current Medications: Meds: Current Medications Acetaminophen (Tylenol) 650 mg PRN Q6HRS PRN PO PAIN / TEMP; Start 09/19/18 at 23:15; Stop 09/20/18 at 01:50; Status DC Multi-Ingredient Ointment (Analgesic [place]) 1 wilfredo PRN QID PRN TP MUSCLE PAIN Last administered on 09/21/18at 05:58; Start 09/19/18 at 23:15 Al Hydroxide/Mg Hydroxide (Mylanta Plus Xs) 15 ml PRN AFTMEALHC PRN PO DYSPEPSIA; Start 09/19/18 at 23:15; Stop 09/20/18 at 07:15; Status DC Magnesium Hydroxide (Milk Of Magnesia) 2,400 mg PRN QHS PRN PO CONSTIPATION; Start 09/19/18 at 23:15 Non-Formulary Medication (Venlafaxine Hcl (Effexor Xr)) 75 mg DAILY PO ; Start 09/20/18 at 09:00; Stop 09/20/18 at 09:00; Status DC Non-Formulary Medication (Venlafaxine Hcl (Effexor Xr)) 150 mg DAILY PO ; Start 09/20/18 at 09:00; Stop 09/20/18 at 09:00; Status DC Apixaban (Eliquis) 2.5 mg BID PO Last administered on 09/22/18 19:58; Start 09/20/18 at 09:00 Guaifenesin (Robitussin Dm) 10 ml PRN Q4HRS PRN PO COUGH; Start 09/20/18 at 00:45 Albuterol Sulfate (Ventolin) 2.5 mg PRN TID PRN NEB SHORTNESS OF BREATH; Start 09/20/18 at 00:45 Albuterol/ Ipratropium (Duoneb) 3 ml RTQID NEB Last administered on 09/22/18 20:47; Start 09/20/18 at 08:00 Al Hydroxide/Mg Hydroxide (Mylanta Plus Xs) 15 ml PRN Q4HRS PRN PO DYSPEPSIA; Start 09/20/18 at 00:45 Pregabalin (Lyrica) 50 mg TID PO Last administered on 09/22/18 19:58; Start 09/20/18 at 09:00 Saliva Substitute (Biotene Moisturizing Mouth) 1 spray QID MM Last administered on 09/22/18 17:00; Start 09/20/18 at 09:00 Acetaminophen (Tylenol) 500 mg PRN Q4HRS PRN PO PAIN / TEMP; Start 09/20/18 at 00:45 Aspirin (Children'S Aspirin) 81 mg DAILYWBKFT PO Last administered on 09/22/18 07:56; Start 09/20/18 at 08:00 Baclofen (Lioresal) 10 mg BID PO Last administered on 09/22/18 19:58; Start 09/20/18 at 09:00 Capsaicin (Zostrix) 1 wilfredo PRN BID PRN TP PAIN; Start 09/20/18 at 02:00 Carbidopa/Levodopa (Sinemet 25/100) 1.5 tab QID PO Last administered on 09/22/18 19:56; Start 09/20/18 at 09:00 Artificial Tears (Artificial Tears) 1 drop PRN QID PRN OU DRY EYES; Start 09/20/18 at 02:00 Famotidine (Pepcid) 20 mg QHS PO Last administered on 09/22/18 19:57; Start 09/20/18 at 21:00 Cetirizine HCl (ZyrTEC) 10 mg QHS PO Last administered on 09/22/18 19:57; Start 09/20/18 at 21:00 Furosemide (Lasix) 40 mg DAILY PO Last administered on 09/22/18 07:56; Start 09/20/18 at 09:00 Insulin Human Lispro (HumaLOG) 16 units TIDAC SQ Last administered on 09/22/18 17:05; Start 09/20/18 at 07:30 Insulin Glargine (Lantus) 28 units BID SQ Last administered on 09/22/18 20:00; Start 09/20/18 at 09:00 Levothyroxine Sodium (Synthroid) 50 mcg DAILY06 PO Last administered on 09/22/18 06:01; Start 09/20/18 at 06:00 Levothyroxine Sodium (Synthroid) 200 mcg DAILY06 PO Last administered on 09/22/18 06:01; Start 09/20/18 at 06:00 Meloxicam (Mobic) 15 mg DAILY PO Last administered on 09/22/18 07:56; Start 09/20/18 at 09:00 Multivitamins/ Calcium (Thera-M Plus) 1 tab BID PO Last administered on 09/22/18 19:57; Start 09/20/18 at 09:00 Ondansetron HCl (Zofran Odt) 4 mg PRN TID PRN PO NAUSEA; Start 09/20/18 at 00:45 Potassium Chloride (Klor-Con) 10 meq DAILYWBKFT PO Last administered on 09/22/18 07:57; Start 09/20/18 at 08:00 Linagliptin (Tradjenta) 5 mg DAILY PO Last administered on 09/22/18 07:56; Start 09/20/18 at 09:00 Non-Formulary Medication (Umeclidinium [place] (Incruse Ellipta)) 62.5 mcg DAILY IH ; Start 09/20/18 at 09:00; Stop 09/20/18 at 09:00; Status DC Venlafaxine HCl (Effexor) 75 mg TID PO Last administered on 09/21/18 07:57; Start 09/20/18 at 09:00; Stop 09/21/18 at 11:33; Status DC Venlafaxine HCl (Effexor) 75 mg BID PO Last administered on 09/22/18at 19:57; Start 09/21/18 at 21:00; Stop 09/23/18 at 23:00 Venlafaxine HCl (Effexor) 75 mg DAILY PO ; Start 09/24/18 at 09:00; Stop 09/26/18 at 12:00 Duloxetine HCl (Cymbalta) 30 mg DAILY PO Last administered on 09/22/18at 07:58; Start 09/22/18 at 09:00; Stop 09/29/18 at 12:00 Duloxetine HCl (Cymbalta) 60 mg DAILY PO ; Start 09/30/18 at 09:00 Active Scripts Active Reported Arthritis Pain Relief (Capsaicin) 42.5 Gm Cream..g. 42.5 Gm TP PRN BID PRN Guaifenesin Dm Syrup (Guaifenesin/Dextromethorphan) 5 Ml Syrup 10 Ml PO PRN Q4HRS PRN Zofran (Ondansetron Hcl) 4 Mg Tablet 4 Mg PO PRN TID PRN Mag-Al Plus Xs Suspension (Mag Hydrox/Al Hydrox/Simeth) 30 Ml Oral.susp 15 Ml PO PRN Q4HRS PRN Artificial Tears Eye Drops (Dextran 70/Hypromellose) 15 Ml Drops 1 Drop OP PRN QID PRN Acetaminophen 500 Mg Tablet 500 Mg PO PRN Q4HRS PRN Duoneb 0.5-3(2.5) Mg/3 Ml (Albuterol/Ipratropium) 3 Ml Ampul.neb 3 Ml NEB PRN TID PRN Effexor Xr (Venlafaxine Hcl) 75 Mg Cap.er.24h 75 Mg PO DAILY Effexor Xr (Venlafaxine Hcl) 150 Mg Cap.er.24h 150 Mg PO DAILY Potassium Chloride 10 Meq Tablet.er 10 Meq PO DAILY Meloxicam 15 Mg Tablet 15 Mg PO DAILY Lyrica (Pregabalin) 50 Mg Capsule 50 Mg PO TID Levothyroxine Sodium 50 Mcg Tablet 50 Mcg PO DAILYAC Levothyroxine Sodium 200 Mcg Tablet 200 Mcg PO DAILYAC Januvia (Sitagliptin Phosphate) 100 Mg Tablet 100 Mg PO DAILY Incruse Ellipta (Umeclidinium [place]) 62.5 Mcg Blst.w.dev 62.5 Mcg IH DAILY Furosemide 40 Mg Tablet 40 Mg PO DAILY Fexofenadine Hcl 180 Mg Tablet 60 Mg PO QHS Famotidine 20 Mg Tablet 20 Mg PO QHS Eliquis (Apixaban) 2.5 Mg Tablet 2.5 Mg PO BID Daily Vitamin + Iron (Multivitamins With Iron) 1 Each Tablet 1 Each PO BID Carbidopa-Levo 25-100 Mg Odt (Carbidopa/Levodopa) 1 Each Tab.rapdis 1.5 Tab PO QID Biotene Moisturizing Mouth (Saliva Stimulant Agents Comb.3) 44.3 Ml [place] 1 Wilfredo MM QID Baclofen 10 Mg Tablet 10 Mg PO BID Aspirin 81 Mg Tab.chew 81 Mg PO DAILY Novolog Flexpen (Insulin Aspart) 100 Unit/1 Ml Insuln.pen 16 Unit SQ TIDAC Levemir Flextouch (Insulin Detemir) 100 Unit/1 Ml Insuln.pen 28 Unit SQ BID Duoneb 0.5-3(2.5) Mg/3 Ml (Albuterol/Ipratropium) 3 Ml Ampul.neb 3 Ml NEB QID I have reviewed the current psychotropics carefully including drug interactions. Risk benefit ratio favors no change other than as noted in my dictated progress note. Diagnosis: Problems: (1) Anxiety disorder (2) Major depressive disorder, recurrent episode (3) Impulse control disorder (4) Parkinson's disease MONICA MCWILLIAMS MD September 22, 2018 22:37
--- NOTE | 2018-09-22 23:54 | NUR ---
Nursing Note Pt calm pleasant and cooperative. Carries a mechanical monkey around with here when in her w/c, she talks to it and it makes mechanical odd monkey noises. Denies that she is delusional about it.
[2018-09-23] MEDS: IPRATRPIUM/ALBUTEROL 0.5/2.5MG 3 ML NEBU. NEB SCH ×4 (05:21→20:43)
[2018-09-23 05:43] VITALS: BP 142/92
[2018-09-23] MEDS: LEVOTHYROXINE 100 MCG TABLET PO SCH (05:48)
[2018-09-23] MEDS: LEVOTHYROXINE 50 MCG TABLET PO SCH (05:48)
[2018-09-23] MEDS: APIXABAN 2.5 MG TABLET PO SCH ×2 (08:16→19:48)
[2018-09-23] MEDS: PREGABALIN 50 MG CAPSULE PO SCH ×3 (08:16→19:48)
[2018-09-23] MEDS: VENLAFAXINE 75 MG TABLET. PO SCH ×2 (08:16→19:48)
[2018-09-23] MEDS: CARBIDOPA/LEVODOPA 25/100MG TABLET PO SCH ×4 (08:17→19:48)
[2018-09-23] MEDS: LINAGLIPTIN 5 MG TABLET PO SCH (08:17)
[2018-09-23] MEDS: ASPIRIN 81 MG TAB.CHEW PO SCH (08:17)
[2018-09-23] MEDS: POTASSIUM CHLORIDE 10 MEQ TABLET.ER. PO SCH (08:17)
[2018-09-23] MEDS: DULoxetine HCL 30 MG CAPSULE.DR PO SCH (08:17)
[2018-09-23] MEDS: MULTIVITAMIN with MINERAL TABLET. PO SCH ×2 (08:17→19:48)
[2018-09-23] MEDS: MELOXICAM 15 MG TABLET. PO SCH (08:17)
[2018-09-23] MEDS: FUROSEMIDE 40 MG TABLET PO SCH (08:18)
[2018-09-23] MEDS: BACLOFEN 10 MG TABLET PO SCH ×2 (08:18→19:48)
[2018-09-23] MEDS: INSULIN LISPRO 300 UNITS/3 ML INSULN.PEN. SQ SCH ×3 (08:19→17:23)
[2018-09-23] MEDS: INSULIN GLARGINE 300 UNITS/3 ML INSULN.PEN. SQ SCH ×2 (08:21→19:49)
[2018-09-23] MEDS: SALIVA STIMULANT AGENT 44ML SPRAY BOTTLE. MM SCH ×4 (08:23→17:00)
--- NOTE | 2018-09-23 13:08 | RAD ---
CT HEAD WO CONTRAST Clinical indications: Mental status change. COMPARISON: None available. Technique: Noncontrast axial cross sectional scanning of the head was performed. PQRS compliance Statement One or more of the following individualized dose reduction techniques were utilized for this study: 1. Automated exposure control 2. Adjustment of the mA and/or kV according to patient size 3. Use of iterative reconstruction technique Findings: Ventricular shunt catheter is seen and the tip is seen extending through the anterior aspect of the right lateral ventricle. Moderate hydrocephalus is evident. No acute intracranial hemorrhage or midline shift or mass-effect or extra-axial fluid collection is seen. No focal hypodense area or sulci effacement is seen to indicate an acute infarct or edema radiographically. No skull fracture or pneumocephalus is seen. No opacification of the mastoid sinuses or the paranasal sinuses is seen. The maxillary sinuses are not completely seen in this study. Impression: No acute intracranial hemorrhage is seen. Moderate hydrocephalus. Ventricular shunt catheter is in place. Therefore, there may be malfunction of the shunt. Electronically signed by: Grover Pimentel MD (09/23/2018 1:05 PM) [facility]
[2018-09-23 15:36] VITALS: BP 119/77
--- NOTE | 2018-09-23 18:00 | NUR ---
Pt attention seeking, disorganized, and generally med compliant. Carries a mechanical monkey around with here when in her w/c that she talks to and treats as if an . Denies that she is delusional about it. Will give report to oncoming shift
[2018-09-23] MEDS: FAMOTIDINE 20 MG TABLET PO SCH (19:48)
[2018-09-23] MEDS: CETIRIZINE HCL 10 MG TABLET PO SCH (19:48)
--- NOTE | 2018-09-23 22:33 | PDOC ---
Exam Note: Bryce Note: Please also refer to the separate dictated note~for this date of service dictated separately.~Patient seen individually. Discussed the patient with Nursing staff reviewed the chart.~Reviewed interim history and current functioning. Reviewed vital signs,~Labs/ Radiology~and current medications noted below. Continue current treatment with the changes noted in the dictated addendum note Assessment: Vital Signs: Vital Signs Date Time Temp Pulse Resp B/P (MAP) Pulse Ox O2 Delivery O2 Flow Rate FiO2 09/23/18 20:44 98 Room Air 09/23/18 15:36 97.6 63 16 119/77 (91) I&O Intake and Output 09/23/18 06:59 Intake Total 1200 ml Balance 1200 ml Intake Oral 1200 ml # Voids 1 # Bowel Movements 1 Labs: Laboratory Tests Test 09/23/18 07:16 09/23/18 12:21 09/23/18 16:23 09/23/18 19:21 Glucose (Fingerstick) 144 mg/dL (70-99) H 259 mg/dL (70-99) H 116 mg/dL (70-99) H 138 mg/dL (70-99) H Current Medications: Meds: Current Medications Acetaminophen (Tylenol) 650 mg PRN Q6HRS PRN PO PAIN / TEMP; Start 09/19/18 at 23:15; Stop 09/20/18 at 01:50; Status DC Multi-Ingredient Ointment (Analgesic [place]) 1 wilfredo PRN QID PRN TP MUSCLE PAIN Last administered on 09/21/18at 05:58; Start 09/19/18 at 23:15 Al Hydroxide/Mg Hydroxide (Mylanta Plus Xs) 15 ml PRN AFTMEALHC PRN PO DYSPEPSIA; Start 09/19/18 at 23:15; Stop 09/20/18 at 07:15; Status DC Magnesium Hydroxide (Milk Of Magnesia) 2,400 mg PRN QHS PRN PO CONSTIPATION; Start 09/19/18 at 23:15 Non-Formulary Medication (Venlafaxine Hcl (Effexor Xr)) 75 mg DAILY PO ; Start 09/20/18 at 09:00; Stop 09/20/18 at 09:00; Status DC Non-Formulary Medication (Venlafaxine Hcl (Effexor Xr)) 150 mg DAILY PO ; Start 09/20/18 at 09:00; Stop 09/20/18 at 09:00; Status DC Apixaban (Eliquis) 2.5 mg BID PO Last administered on 09/23/18 19:48; Start 09/20/18 at 09:00 Guaifenesin (Robitussin Dm) 10 ml PRN Q4HRS PRN PO COUGH; Start 09/20/18 at 00:45 Albuterol Sulfate (Ventolin) 2.5 mg PRN TID PRN NEB SHORTNESS OF BREATH; Start 09/20/18 at 00:45 Albuterol/ Ipratropium (Duoneb) 3 ml RTQID NEB Last administered on 09/23/18at 20:43; Start 09/20/18 at 08:00 Al Hydroxide/Mg Hydroxide (Mylanta Plus Xs) 15 ml PRN Q4HRS PRN PO DYSPEPSIA; Start 09/20/18 at 00:45 Pregabalin (Lyrica) 50 mg TID PO Last administered on 09/23/18 19:48; Start 09/20/18 at 09:00 Saliva Substitute (Biotene Moisturizing Mouth) 1 spray QID MM Last administered on 09/22/18 17:00; Start 09/20/18 at 09:00; Stop 09/23/18 at 19:43; Status DC Acetaminophen (Tylenol) 500 mg PRN Q4HRS PRN PO PAIN / TEMP; Start 09/20/18 at 00:45 Aspirin (Children'S Aspirin) 81 mg DAILYWBKFT PO Last administered on 09/23/18 08:17; Start 09/20/18 at 08:00 Baclofen (Lioresal) 10 mg BID PO Last administered on 09/23/18 19:48; Start 09/20/18 at 09:00 Capsaicin (Zostrix) 1 wilfredo PRN BID PRN TP PAIN; Start 09/20/18 at 02:00 Carbidopa/Levodopa (Sinemet 25/100) 1.5 tab QID PO Last administered on 09/23/18 19:48; Start 09/20/18 at 09:00 Artificial Tears (Artificial Tears) 1 drop PRN QID PRN OU DRY EYES; Start 09/20/18 at 02:00 Famotidine (Pepcid) 20 mg QHS PO Last administered on 09/23/18 19:48; Start 09/20/18 at 21:00 Cetirizine HCl (ZyrTEC) 10 mg QHS PO Last administered on 09/23/18 19:48; Start 09/20/18 at 21:00 Furosemide (Lasix) 40 mg DAILY PO Last administered on 09/23/18 08:18; Start 09/20/18 at 09:00 Insulin Human Lispro (HumaLOG) 16 units TIDAC SQ Last administered on 09/23/18 17:23; Start 09/20/18 at 07:30 Insulin Glargine (Lantus) 28 units BID SQ Last administered on 09/23/18 19:49; Start 09/20/18 at 09:00 Levothyroxine Sodium (Synthroid) 50 mcg DAILY06 PO Last administered on 09/23/18 05:48; Start 09/20/18 at 06:00 Levothyroxine Sodium (Synthroid) 200 mcg DAILY06 PO Last administered on 09/23/18 05:48; Start 09/20/18 at 06:00 Meloxicam (Mobic) 15 mg DAILY PO Last administered on 09/23/18 08:17; Start 09/20/18 at 09:00 Multivitamins/ Calcium (Thera-M Plus) 1 tab BID PO Last administered on 09/23/18 19:48; Start 09/20/18 at 09:00 Ondansetron HCl (Zofran Odt) 4 mg PRN TID PRN PO NAUSEA; Start 09/20/18 at 00:45 Potassium Chloride (Klor-Con) 10 meq DAILYWBKFT PO Last administered on 09/23/18 08:17; Start 09/20/18 at 08:00 Linagliptin (Tradjenta) 5 mg DAILY PO Last administered on 09/23/18 08:17; Start 09/20/18 at 09:00 Non-Formulary Medication (Umeclidinium [place] (Incruse Ellipta)) 62.5 mcg DAILY IH ; Start 09/20/18 at 09:00; Stop 09/20/18 at 09:00; Status DC Venlafaxine HCl (Effexor) 75 mg TID PO Last administered on 5/23/19at 07:57; Start 09/20/18 at 09:00; Stop 09/21/18 at 11:33; Status DC Venlafaxine HCl (Effexor) 75 mg BID PO Last administered on 09/23/18at 19:48; Start 09/21/18 at 21:00; Stop 09/23/18 at 23:00 Venlafaxine HCl (Effexor) 75 mg DAILY PO ; Start 09/24/18 at 09:00; Stop 09/26/18 at 12:00 Duloxetine HCl (Cymbalta) 30 mg DAILY PO Last administered on 09/23/18at 08:17; Start 09/22/18 at 09:00; Stop 09/29/18 at 12:00 Duloxetine HCl (Cymbalta) 60 mg DAILY PO ; Start 09/30/18 at 09:00 Active Scripts Active Reported Arthritis Pain Relief (Capsaicin) 42.5 Gm Cream..g. 42.5 Gm TP PRN BID PRN Guaifenesin Dm Syrup (Guaifenesin/Dextromethorphan) 5 Ml Syrup 10 Ml PO PRN Q4HRS PRN Zofran (Ondansetron Hcl) 4 Mg Tablet 4 Mg PO PRN TID PRN Mag-Al Plus Xs Suspension (Mag Hydrox/Al Hydrox/Simeth) 30 Ml Oral.susp 15 Ml PO PRN Q4HRS PRN Artificial Tears Eye Drops (Dextran 70/Hypromellose) 15 Ml Drops 1 Drop OP PRN QID PRN Acetaminophen 500 Mg Tablet 500 Mg PO PRN Q4HRS PRN Duoneb 0.5-3(2.5) Mg/3 Ml (Albuterol/Ipratropium) 3 Ml Ampul.neb 3 Ml NEB PRN TID PRN Effexor Xr (Venlafaxine Hcl) 75 Mg Cap.er.24h 75 Mg PO DAILY Effexor Xr (Venlafaxine Hcl) 150 Mg Cap.er.24h 150 Mg PO DAILY Potassium Chloride 10 Meq Tablet.er 10 Meq PO DAILY Meloxicam 15 Mg Tablet 15 Mg PO DAILY Lyrica (Pregabalin) 50 Mg Capsule 50 Mg PO TID Levothyroxine Sodium 50 Mcg Tablet 50 Mcg PO DAILYAC Levothyroxine Sodium 200 Mcg Tablet 200 Mcg PO DAILYAC Januvia (Sitagliptin Phosphate) 100 Mg Tablet 100 Mg PO DAILY Incruse Ellipta (Umeclidinium [place]) 62.5 Mcg Blst.w.dev 62.5 Mcg IH DAILY Furosemide 40 Mg Tablet 40 Mg PO DAILY Fexofenadine Hcl 180 Mg Tablet 60 Mg PO QHS Famotidine 20 Mg Tablet 20 Mg PO QHS Eliquis (Apixaban) 2.5 Mg Tablet 2.5 Mg PO BID Daily Vitamin + Iron (Multivitamins With Iron) 1 Each Tablet 1 Each PO BID Carbidopa-Levo 25-100 Mg Odt (Carbidopa/Levodopa) 1 Each Tab.rapdis 1.5 Tab PO QID Biotene Moisturizing Mouth (Saliva Stimulant Agents Comb.3) 44.3 Ml [place] 1 Wilfredo MM QID Baclofen 10 Mg Tablet 10 Mg PO BID Aspirin 81 Mg Tab.chew 81 Mg PO DAILY Novolog Flexpen (Insulin Aspart) 100 Unit/1 Ml Insuln.pen 16 Unit SQ TIDAC Levemir Flextouch (Insulin Detemir) 100 Unit/1 Ml Insuln.pen 28 Unit SQ BID Duoneb 0.5-3(2.5) Mg/3 Ml (Albuterol/Ipratropium) 3 Ml Ampul.neb 3 Ml NEB QID I have reviewed the current psychotropics carefully including drug interactions. Risk benefit ratio favors no change other than as noted in my dictated progress note. Diagnosis: Problems: (1) Anxiety disorder (2) Major depressive disorder, recurrent episode (3) Impulse control disorder (4) Parkinson's disease MONICA MCWILLIAMS MD September 23, 2018 22:33
--- NOTE | 2018-09-24 00:47 | NUR ---
Pt located in dayroom completing word searches all evening. Pt very social, interactive and compliant with whole medications floated in chocolate pudding. Pt introduced this nurse to Christy, stating that Christy helps keep her calm. Pt stated that she saw Dr. Glover today and was very proud of herself for being able to show him that she can walk with a walker.
[2018-09-24] MEDS: LEVOTHYROXINE 50 MCG TABLET PO SCH (05:03)
[2018-09-24] MEDS: LEVOTHYROXINE 100 MCG TABLET PO SCH (05:03)
[2018-09-24] MEDS: IPRATRPIUM/ALBUTEROL 0.5/2.5MG 3 ML NEBU. NEB SCH ×4 (05:26→20:17)
[2018-09-24 06:56] VITALS: BP 123/88
[2018-09-24] MEDS: DULoxetine HCL 30 MG CAPSULE.DR PO SCH (08:10)
[2018-09-24] MEDS: FUROSEMIDE 40 MG TABLET PO SCH (08:10)
[2018-09-24] MEDS: APIXABAN 2.5 MG TABLET PO SCH ×2 (08:10→20:00)
[2018-09-24] MEDS: LINAGLIPTIN 5 MG TABLET PO SCH (08:10)
[2018-09-24] MEDS: CARBIDOPA/LEVODOPA 25/100MG TABLET PO SCH ×4 (08:10→20:01)
[2018-09-24] MEDS: MELOXICAM 15 MG TABLET. PO SCH (08:10)
[2018-09-24] MEDS: MULTIVITAMIN with MINERAL TABLET. PO SCH ×2 (08:10→19:59)
[2018-09-24] MEDS: BACLOFEN 10 MG TABLET PO SCH ×2 (08:10→19:59)
[2018-09-24] MEDS: POTASSIUM CHLORIDE 10 MEQ TABLET.ER. PO SCH (08:11)
[2018-09-24] MEDS: ASPIRIN 81 MG TAB.CHEW PO SCH (08:11)
[2018-09-24] MEDS: INSULIN LISPRO 300 UNITS/3 ML INSULN.PEN. SQ SCH ×3 (08:16→17:13)
[2018-09-24] MEDS: PREGABALIN 50 MG CAPSULE PO SCH ×3 (08:54→20:00)
[2018-09-24] MEDS: VENLAFAXINE 75 MG TABLET. PO SCH (08:54)
[2018-09-24] MEDS: INSULIN GLARGINE 300 UNITS/3 ML INSULN.PEN. SQ SCH ×2 (08:55→20:24)
[2018-09-24] MEDS: rOPINIRole 0.5 MG TABLET. PO SCH ×2 (13:38→20:02)
[2018-09-24 15:58] VITALS: BP 111/79
--- NOTE | 2018-09-24 18:00 | NUR ---
Pt has been attention seeking, disorganized, and med compliant. She carries a mechanical monkey around with her when in her w/c that she talks to and treats as if an infant. She has also been hiding snacks in the blanket the monkey is wrapped up in. Denies that she is delusional about it. Will continue to monitor and give report to oncoming shift
--- NOTE | 2018-09-24 19:52 | PN ---
DATE: 09/24/2018 PSYCHIATRIC PROGRESS NOTE This late entry 09/22/2018 covers elements not covered in my initial note. SUBJECTIVE: I met with the patient in the evening of 09/22/2018. I met with her at length individually. She slept 5 hours previous evening. Overall, per nursing report, she is doing better, less anxious, irritable, and labile. We will check a CT head and have a Neurology consult, especially given a history of normal pressure hydrocephalus and the fact that she puts herself on the floor. Gait is unsteady in addition to mood symptoms. REVIEW OF SYSTEMS: Ambulation impaired, in wheelchair. No CV, , pulmonary, eye, ENT system symptoms on review. In fact, the patient ambulates with walker at times. MENTAL STATUS EXAM: Oriented to herself and situation. Speech has some latency, coherent. Abstraction fair, computation impaired, language function intact, attention span short. Mood and affect showing improvement, still depressed, anxious, labile, but better. LABORATORY DATA: Reviewed. IMPRESSION: Unchanged from initial note. PLAN: No change other than noted above. MAN Natali MCWILLIAMS MD DR: REAL/rosanna JOB#: [id number] / [id number]
[2018-09-24] MEDS: CETIRIZINE HCL 10 MG TABLET PO SCH (20:00)
[2018-09-24] MEDS: FAMOTIDINE 20 MG TABLET PO SCH (20:00)
--- NOTE | 2018-09-24 22:25 | PDOC ---
Exam Note: Bryce Note: Please also refer to the separate dictated note~for this date of service dictated separately.~Patient seen individually. Discussed the patient with Nursing staff reviewed the chart.~Reviewed interim history and current functioning. Reviewed vital signs,~Labs/ Radiology~and current medications noted below. Continue current treatment with the changes noted in the dictated addendum note Assessment: Vital Signs: Vital Signs Date Time Temp Pulse Resp B/P (MAP) Pulse Ox O2 Delivery O2 Flow Rate FiO2 09/24/18 20:19 95 Room Air 09/24/18 15:58 97.2 101 18 111/79 (90) I&O Intake and Output 09/24/18 06:59 Intake Total 1080 ml Balance 1080 ml Intake Oral 1080 ml Labs: Laboratory Tests Test 09/24/18 07:15 09/24/18 11:37 09/24/18 16:46 09/24/18 19:54 Glucose (Fingerstick) 163 mg/dL (70-99) H 202 mg/dL (70-99) H 218 mg/dL (70-99) H 255 mg/dL (70-99) H Current Medications: Meds: Current Medications Acetaminophen (Tylenol) 650 mg PRN Q6HRS PRN PO PAIN / TEMP; Start 09/19/18 at 23:15; Stop 09/20/18 at 01:50; Status DC Multi-Ingredient Ointment (Analgesic [place]) 1 wilfredo PRN QID PRN TP MUSCLE PAIN Last administered on 09/21/18at 05:58; Start 09/19/18 at 23:15 Al Hydroxide/Mg Hydroxide (Mylanta Plus Xs) 15 ml PRN AFTMEALHC PRN PO DYSPEPSIA; Start 09/19/18 at 23:15; Stop 09/20/18 at 07:15; Status DC Magnesium Hydroxide (Milk Of Magnesia) 2,400 mg PRN QHS PRN PO CONSTIPATION; Start 09/19/18 at 23:15 Non-Formulary Medication (Venlafaxine Hcl (Effexor Xr)) 75 mg DAILY PO ; Start 09/20/18 at 09:00; Stop 09/20/18 at 09:00; Status DC Non-Formulary Medication (Venlafaxine Hcl (Effexor Xr)) 150 mg DAILY PO ; Start 09/20/18 at 09:00; Stop 09/20/18 at 09:00; Status DC Apixaban (Eliquis) 2.5 mg BID PO Last administered on 09/24/18at 20:00; Start 09/20/18 at 09:00 Guaifenesin (Robitussin Dm) 10 ml PRN Q4HRS PRN PO COUGH; Start 09/20/18 at 00:45 Albuterol Sulfate (Ventolin) 2.5 mg PRN TID PRN NEB SHORTNESS OF BREATH; Start 09/20/18 at 00:45 Albuterol/ Ipratropium (Duoneb) 3 ml RTQID NEB Last administered on 09/24/18at 20:17; Start 09/20/18 at 08:00 Al Hydroxide/Mg Hydroxide (Mylanta Plus Xs) 15 ml PRN Q4HRS PRN PO DYSPEPSIA; Start 09/20/18 at 00:45 Pregabalin (Lyrica) 50 mg TID PO Last administered on 09/24/18 20:00; Start 09/20/18 at 09:00 Saliva Substitute (Biotene Moisturizing Mouth) 1 spray QID MM Last administered on 09/22/18 17:00; Start 09/20/18 at 09:00; Stop 09/23/18 at 19:43; Status DC Acetaminophen (Tylenol) 500 mg PRN Q4HRS PRN PO PAIN / TEMP; Start 09/20/18 at 00:45 Aspirin (Children'S Aspirin) 81 mg DAILYWBKFT PO Last administered on 09/24/18at 08:11; Start 09/20/18 at 08:00 Baclofen (Lioresal) 10 mg BID PO Last administered on 09/24/18at 19:59; Start 09/20/18 at 09:00 Capsaicin (Zostrix) 1 wilfredo PRN BID PRN TP PAIN; Start 09/20/18 at 02:00 Carbidopa/Levodopa (Sinemet 25/100) 1.5 tab QID PO Last administered on 09/24/18at 20:01; Start 09/20/18 at 09:00 Artificial Tears (Artificial Tears) 1 drop PRN QID PRN OU DRY EYES; Start 09/20/18 at 02:00 Famotidine (Pepcid) 20 mg QHS PO Last administered on 09/24/18 20:00; Start 09/20/18 at 21:00 Cetirizine HCl (ZyrTEC) 10 mg QHS PO Last administered on 09/24/18 20:00; Start 09/20/18 at 21:00 Furosemide (Lasix) 40 mg DAILY PO Last administered on 09/24/18 08:10; Start 09/20/18 at 09:00 Insulin Human Lispro (HumaLOG) 16 units TIDAC SQ Last administered on 09/24/18 17:13; Start 09/20/18 at 07:30 Insulin Glargine (Lantus) 28 units BID SQ Last administered on 09/24/18 20:24; Start 09/20/18 at 09:00 Levothyroxine Sodium (Synthroid) 50 mcg DAILY06 PO Last administered on 09/24/18 05:03; Start 09/20/18 at 06:00 Levothyroxine Sodium (Synthroid) 200 mcg DAILY06 PO Last administered on 05:03; Start 09/20/18 at 06:00 Meloxicam (Mobic) 15 mg DAILY PO Last administered on 09/24/18 08:10; Start 09/20/18 at 09:00 Multivitamins/ Calcium (Thera-M Plus) 1 tab BID PO Last administered on 09/24/18 19:59; Start 09/20/18 at 09:00 Ondansetron HCl (Zofran Odt) 4 mg PRN TID PRN PO NAUSEA; Start 09/20/18 at 00:45 Potassium Chloride (Klor-Con) 10 meq DAILYWBKFT PO Last administered on 09/24/18 08:11; Start 09/20/18 at 08:00 Linagliptin (Tradjenta) 5 mg DAILY PO Last administered on 09/24/18 08:10; Start 09/20/18 at 09:00 Non-Formulary Medication (Umeclidinium [place] (Incruse Ellipta)) 62.5 mcg DAILY IH ; Start 09/20/18 at 09:00; Stop 09/20/18 at 09:00; Status DC Venlafaxine HCl (Effexor) 75 mg TID PO Last administered on 09/21/18 07:57; Start 09/20/18 at 09:00; Stop 09/21/18 at 11:33; Status DC Venlafaxine HCl (Effexor) 75 mg BID PO Last administered on 09/23/18at 19:48; Start 09/21/18 at 21:00; Stop 09/23/18 at 23:00; Status DC Venlafaxine HCl (Effexor) 75 mg DAILY PO Last administered on 09/24/18at 08:54; Start 09/24/18 at 09:00; Stop 09/26/18 at 12:00 Duloxetine HCl (Cymbalta) 30 mg DAILY PO Last administered on 09/24/18at 08:10; Start 09/22/18 at 09:00; Stop 09/29/18 at 12:00 Duloxetine HCl (Cymbalta) 60 mg DAILY PO ; Start 09/30/18 at 09:00 Ropinirole HCl (Requip) 0.5 mg TID PO Last administered on 09/24/18at 20:02; Start 09/24/18 at 14:00 Active Scripts Active Reported Arthritis Pain Relief (Capsaicin) 42.5 Gm Cream..g. 42.5 Gm TP PRN BID PRN Guaifenesin Dm Syrup (Guaifenesin/Dextromethorphan) 5 Ml Syrup 10 Ml PO PRN Q4HRS PRN Zofran (Ondansetron Hcl) 4 Mg Tablet 4 Mg PO PRN TID PRN Mag-Al Plus Xs Suspension (Mag Hydrox/Al Hydrox/Simeth) 30 Ml Oral.susp 15 Ml PO PRN Q4HRS PRN Artificial Tears Eye Drops (Dextran 70/Hypromellose) 15 Ml Drops 1 Drop OP PRN QID PRN Acetaminophen 500 Mg Tablet 500 Mg PO PRN Q4HRS PRN Duoneb 0.5-3(2.5) Mg/3 Ml (Albuterol/Ipratropium) 3 Ml Ampul.neb 3 Ml NEB PRN TID PRN Effexor Xr (Venlafaxine Hcl) 75 Mg Cap.er.24h 75 Mg PO DAILY Effexor Xr (Venlafaxine Hcl) 150 Mg Cap.er.24h 150 Mg PO DAILY Potassium Chloride 10 Meq Tablet.er 10 Meq PO DAILY Meloxicam 15 Mg Tablet 15 Mg PO DAILY Lyrica (Pregabalin) 50 Mg Capsule 50 Mg PO TID Levothyroxine Sodium 50 Mcg Tablet 50 Mcg PO DAILYAC Levothyroxine Sodium 200 Mcg Tablet 200 Mcg PO DAILYAC Januvia (Sitagliptin Phosphate) 100 Mg Tablet 100 Mg PO DAILY Incruse Ellipta (Umeclidinium [place]) 62.5 Mcg Blst.w.dev 62.5 Mcg IH DAILY Furosemide 40 Mg Tablet 40 Mg PO DAILY Fexofenadine Hcl 180 Mg Tablet 60 Mg PO QHS Famotidine 20 Mg Tablet 20 Mg PO QHS Eliquis (Apixaban) 2.5 Mg Tablet 2.5 Mg PO BID Daily Vitamin + Iron (Multivitamins With Iron) 1 Each Tablet 1 Each PO BID Carbidopa-Levo 25-100 Mg Odt (Carbidopa/Levodopa) 1 Each Tab.rapdis 1.5 Tab PO QID Biotene Moisturizing Mouth (Saliva Stimulant Agents Comb.3) 44.3 Ml [place] 1 Wilfredo MM QID Baclofen 10 Mg Tablet 10 Mg PO BID Aspirin 81 Mg Tab.chew 81 Mg PO DAILY Novolog Flexpen (Insulin Aspart) 100 Unit/1 Ml Insuln.pen 16 Unit SQ TIDAC Levemir Flextouch (Insulin Detemir) 100 Unit/1 Ml Insuln.pen 28 Unit SQ BID Duoneb 0.5-3(2.5) Mg/3 Ml (Albuterol/Ipratropium) 3 Ml Ampul.neb 3 Ml NEB QID I have reviewed the current psychotropics carefully including drug interactions. Risk benefit ratio favors no change other than as noted in my dictated progress note. Diagnosis: Problems: (1) Anxiety disorder (2) Major depressive disorder, recurrent episode (3) Impulse control disorder (4) Parkinson's disease MONICA MCWILLIAMS MD September 24, 2018 22:25
--- NOTE | 2018-09-25 02:23 | NUR ---
Pt located in the dayroom this evening, visiting with her roommate and completing word searches. Pt calm, social and compliant with medications. Pt continues to be delusional about her monkey, Christy; calling it her baby. Compliant with her shower. However, pt continues to act helpless, stating that she can't do it by herself.
[2018-09-25] MEDS: LEVOTHYROXINE 100 MCG TABLET PO SCH (05:07)
[2018-09-25] MEDS: LEVOTHYROXINE 50 MCG TABLET PO SCH (05:07)
[2018-09-25] MEDS: IPRATRPIUM/ALBUTEROL 0.5/2.5MG 3 ML NEBU. NEB SCH ×4 (05:37→21:01)
[2018-09-25 06:12] VITALS: BP 131/80
[2018-09-25 07:40] LABS: BASO # 0.1 x10^3/uL (0.0-0.2); BASO % 1 % (0-3); EOS # 0.2 x10^3/uL (0.0-0.7); EOS % 3 % (0-3); HEMATOCRIT 37.9 % (36.0-47.0); LYMPH # 1.2 x10^3/uL (1.0-4.8); LYMPH % 19 % (24-48); MEAN CORPUSCULAR HEMOGLOBIN 26 pg (25-35); MEAN CORPUSCULAR HGB CONC 32 g/dL (31-37); MEAN CORPUSCULAR VOLUME 83 fL (79-100); MONO # 0.5 x10^3/uL (0.0-1.1); MONO % 8 % (0-9); NEUT # 4.4 x10^3uL (1.8-7.7); NEUT % 69 % (31-73); PLATELET COUNT 210 x10^3/uL (140-400); RED BLOOD COUNT 4.56 x10^6/uL (3.50-5.40); RED CELL DISTRIBUTION WIDTH 18.4 % (11.5-14.5); WHITE BLOOD COUNT 6.4 x10^3/uL (4.0-11.0)
[2018-09-25 07:51] LABS: ALBUMIN 2.9 g/dL (3.4-5.0); ALBUMIN/GLOBULIN RATIO 0.7 (1.0-1.7); CALCIUM 8.9 mg/dL (8.5-10.1); CREATININE 0.9 mg/dL (0.6-1.0); GFR 61.9; TOTAL BILIRUBIN 0.2 mg/dL (0.2-1.0); TOTAL PROTEIN 7.1 g/dL (6.4-8.2)
[2018-09-25] MEDS: FUROSEMIDE 40 MG TABLET PO SCH (07:59)
[2018-09-25] MEDS: rOPINIRole 0.5 MG TABLET. PO SCH ×3 (07:59→20:09)
[2018-09-25] MEDS: POTASSIUM CHLORIDE 10 MEQ TABLET.ER. PO SCH (07:59)
[2018-09-25] MEDS: BACLOFEN 10 MG TABLET PO SCH ×2 (07:59→20:09)
[2018-09-25] MEDS: MELOXICAM 15 MG TABLET. PO SCH (08:00)
[2018-09-25] MEDS: LINAGLIPTIN 5 MG TABLET PO SCH (08:00)
[2018-09-25] MEDS: VENLAFAXINE 75 MG TABLET. PO SCH (08:00)
[2018-09-25] MEDS: CARBIDOPA/LEVODOPA 25/100MG TABLET PO SCH ×4 (08:00→20:10)
[2018-09-25] MEDS: MULTIVITAMIN with MINERAL TABLET. PO SCH ×2 (08:00→20:09)
[2018-09-25] MEDS: APIXABAN 2.5 MG TABLET PO SCH ×2 (08:00→20:10)
[2018-09-25] MEDS: DULoxetine HCL 30 MG CAPSULE.DR PO SCH (08:00)
[2018-09-25] MEDS: ASPIRIN 81 MG TAB.CHEW PO SCH (08:00)
[2018-09-25] MEDS: INSULIN LISPRO 300 UNITS/3 ML INSULN.PEN. SQ SCH ×3 (08:03→17:20)
[2018-09-25] MEDS: INSULIN GLARGINE 300 UNITS/3 ML INSULN.PEN. SQ SCH ×2 (08:04→20:14)
[2018-09-25] MEDS: PREGABALIN 50 MG CAPSULE PO SCH ×3 (08:07→20:10)
--- NOTE | 2018-09-25 12:10 | PN ---
DATE: 09/24/2018 PSYCHIATRIC PROGRESS NOTE This late entry 09/24/2018 covers elements not covered in my initial note. SUBJECTIVE: I met with the patient in the evening. The patient slept 6 hours previous night. She was seen by Dr. Glover for her normal pressure hydrocephalus. We will await recommendations. She refused shower, somewhat delusional about the monkey she carries with her all the time. REVIEW OF SYSTEMS: Impaired ambulation, in wheelchair and at times walks with assistance. No CV, , pulmonary, eye, ENT system symptoms on review. MENTAL STATUS EXAM: Oriented to herself and situation. Speech is coherent, somewhat pressured at times. Abstraction fair, computation impaired, language function intact, attention span short. Mood and affect still somewhat anxious, depressed, but improved. LABORATORY DATA: Reviewed. IMPRESSION: Unchanged from initial note. PLAN: No change from initial note. MAN Natali MCWILLIAMS MD DR: REAL/rosanna JOB#: [id number] / [id number]
[2018-09-25 16:06] VITALS: BP 121/82
--- NOTE | 2018-09-25 17:52 | NUR ---
Patient was in day room at shift change, she spent most of the day sitting at the table in the day room doing word searches. She did participate in group during the afternoon. Patient is disorganized, attention seeking, delusional, and potentially hallucinating. Throughout the day, patient was witnessed to have conversations with her toy monkey 'Christy'. She has been compliant with medications. Will continue to monitor and give report to oncoming shift.
[2018-09-25] MEDS: CETIRIZINE HCL 10 MG TABLET PO SCH (20:09)
[2018-09-25] MEDS: FAMOTIDINE 20 MG TABLET PO SCH (20:10)
--- NOTE | 2018-09-25 22:31 | PDOC ---
Exam Note: Bryce Note: Please also refer to the separate dictated note~for this date of service dictated separately.~Patient seen individually. Discussed the patient with Nursing staff reviewed the chart.~Reviewed interim history and current functioning. Reviewed vital signs,~Labs/ Radiology~and current medications noted below. Continue current treatment with the changes noted in the dictated addendum note Assessment: Vital Signs: Vital Signs Date Time Temp Pulse Resp B/P (MAP) Pulse Ox O2 Delivery O2 Flow Rate FiO2 09/25/18 21:03 98 Room Air 09/25/18 16:06 97.9 97 20 121/82 (95) I&O Intake and Output 09/25/18 06:59 Intake Total 1200 ml Balance 1200 ml Intake Oral 1200 ml Labs: Laboratory Tests Test 09/25/18 06:40 09/25/18 07:22 09/25/18 11:36 09/25/18 16:54 White Blood Count 6.4 x10^3/uL (4.0-11.0) Red Blood Count 4.56 x10^6/uL (3.50-5.40) Hemoglobin 12.0 g/dL (12.0-15.5) Hematocrit 37.9 % (36.0-47.0) Mean Corpuscular Volume 83 fL (79-100) Mean Corpuscular Hemoglobin 26 pg (25-35) Mean Corpuscular Hemoglobin Concent 32 g/dL (31-37) Red Cell Distribution Width 18.4 % (11.5-14.5) H Platelet Count 210 x10^3/uL (140-400) Neutrophils (%) (Auto) 69 % (31-73) Lymphocytes (%) (Auto) 19 % (24-48) L Monocytes (%) (Auto) 8 % (0-9) Eosinophils (%) (Auto) 3 % (0-3) Basophils (%) (Auto) 1 % (0-3) Neutrophils # (Auto) 4.4 x10^3uL (1.8-7.7) Lymphocytes # (Auto) 1.2 x10^3/uL (1.0-4.8) Monocytes # (Auto) 0.5 x10^3/uL (0.0-1.1) Eosinophils # (Auto) 0.2 x10^3/uL (0.0-0.7) Basophils # (Auto) 0.1 x10^3/uL (0.0-0.2) Sodium Level 141 mmol/L (136-145) Potassium Level 4.0 mmol/L (3.5-5.1) Chloride Level 105 mmol/L (98-107) Carbon Dioxide Level 29 mmol/L (21-32) Anion Gap 7 (6-14) Blood Urea Nitrogen 17 mg/dL (7-20) Creatinine 0.9 mg/dL (0.6-1.0) Estimated GFR (Cockcroft-Gault) 61.9 BUN/Creatinine Ratio 19 (6-20) Glucose Level 182 mg/dL (70-99) H Calcium Level 8.9 mg/dL (8.5-10.1) Total Bilirubin 0.2 mg/dL (0.2-1.0) Aspartate Amino Transferase (AST) 56 U/L (15-37) H Alanine Aminotransferase (ALT) 44 U/L (14-59) Alkaline Phosphatase 159 U/L (46-116) H Total Protein 7.1 g/dL (6.4-8.2) Albumin 2.9 g/dL (3.4-5.0) L Albumin/Globulin Ratio 0.7 (1.0-1.7) L Glucose (Fingerstick) 192 mg/dL (70-99) H 255 mg/dL (70-99) H 246 mg/dL (70-99) H Test 09/25/18 19:05 Glucose (Fingerstick) 247 mg/dL (70-99) H Current Medications: Meds: Current Medications Acetaminophen (Tylenol) 650 mg PRN Q6HRS PRN PO PAIN / TEMP; Start 09/19/18 at 23:15; Stop 09/20/18 at 01:50; Status DC Multi-Ingredient Ointment (Analgesic [place]) 1 wilfredo PRN QID PRN TP MUSCLE PAIN Last administered on 09/21/18at 05:58; Start 09/19/18 at 23:15 Al Hydroxide/Mg Hydroxide (Mylanta Plus Xs) 15 ml PRN AFTMEALHC PRN PO DYSPEPSIA; Start 09/19/18 at 23:15; Stop 09/20/18 at 07:15; Status DC Magnesium Hydroxide (Milk Of Magnesia) 2,400 mg PRN QHS PRN PO CONSTIPATION; Start 09/19/18 at 23:15 Non-Formulary Medication (Venlafaxine Hcl (Effexor Xr)) 75 mg DAILY PO ; Start 09/20/18 at 09:00; Stop 09/20/18 at 09:00; Status DC Non-Formulary Medication (Venlafaxine Hcl (Effexor Xr)) 150 mg DAILY PO ; Start 09/20/18 at 09:00; Stop 09/20/18 at 09:00; Status DC Apixaban (Eliquis) 2.5 mg BID PO Last administered on 09/25/18at 20:10; Start 09/20/18 at 09:00 Guaifenesin (Robitussin Dm) 10 ml PRN Q4HRS PRN PO COUGH; Start 09/20/18 at 00:45 Albuterol Sulfate (Ventolin) 2.5 mg PRN TID PRN NEB SHORTNESS OF BREATH; Start 09/20/18 at 00:45 Albuterol/ Ipratropium (Duoneb) 3 ml RTQID NEB Last administered on 09/25/18at 21:01; Start 09/20/18 at 08:00 Al Hydroxide/Mg Hydroxide (Mylanta Plus Xs) 15 ml PRN Q4HRS PRN PO DYSPEPSIA; Start 09/20/18 at 00:45 Pregabalin (Lyrica) 50 mg TID PO Last administered on 09/25/18at 20:10; Start 09/20/18 at 09:00 Saliva Substitute (Biotene Moisturizing Mouth) 1 spray QID MM Last administered on 09/22/18at 17:00; Start 09/20/18 at 09:00; Stop 09/23/18 at 19:43; Status DC Acetaminophen (Tylenol) 500 mg PRN Q4HRS PRN PO PAIN / TEMP; Start 09/20/18 at 00:45 Aspirin (Children'S Aspirin) 81 mg DAILYWBKFT PO Last administered on 09/25/18at 08:00; Start 09/20/18 at 08:00 Baclofen (Lioresal) 10 mg BID PO Last administered on 09/25/18at 20:09; Start 09/20/18 at 09:00 Capsaicin (Zostrix) 1 wilfredo PRN BID PRN TP PAIN; Start 09/20/18 at 02:00 Carbidopa/Levodopa (Sinemet 25/100) 1.5 tab QID PO Last administered on 09/25/18 20:10; Start 09/20/18 at 09:00 Artificial Tears (Artificial Tears) 1 drop PRN QID PRN OU DRY EYES; Start 09/20/18 at 02:00 Famotidine (Pepcid) 20 mg QHS PO Last administered on 09/25/18 20:10; Start at 21:00 Cetirizine HCl (ZyrTEC) 10 mg QHS PO Last administered on 09/25/18 20:09; Start 09/20/18 at 21:00 Furosemide (Lasix) 40 mg DAILY PO Last administered on 09/25/18 07:59; Start 09/20/18 at 09:00 Insulin Human Lispro (HumaLOG) 16 units TIDAC SQ Last administered on 09/25/18 12:05; Start 09/20/18 at 07:30; Stop 09/25/18 at 15:05; Status DC Insulin Glargine (Lantus) 28 units BID SQ Last administered on 09/25/18 08:04; Start 09/20/18 at 09:00; Stop 09/25/18 at 15:05; Status DC Levothyroxine Sodium (Synthroid) 50 mcg DAILY06 PO Last administered on 09/25/18 05:07; Start 09/20/18 at 06:00 Levothyroxine Sodium (Synthroid) 200 mcg DAILY06 PO Last administered on 09/25/18 05:07; Start 09/20/18 at 06:00 Meloxicam (Mobic) 15 mg DAILY PO Last administered on 09/25/18 08:00; Start 09/20/18 at 09:00 Multivitamins/ Calcium (Thera-M Plus) 1 tab BID PO Last administered on 09/25/18 20:09; Start 09/20/18 at 09:00 Ondansetron HCl (Zofran Odt) 4 mg PRN TID PRN PO NAUSEA; Start 09/20/18 at 00:45 Potassium Chloride (Klor-Con) 10 meq DAILYWBKFT PO Last administered on 09/25/18 07:59; Start 09/20/18 at 08:00 Linagliptin (Tradjenta) 5 mg DAILY PO Last administered on 09/25/18at 08:00; Start 09/20/18 at 09:00 Non-Formulary Medication (Umeclidinium [place] (Incruse Ellipta)) 62.5 mcg DAILY IH ; Start 09/20/18 at 09:00; Stop 09/20/18 at 09:00; Status DC Venlafaxine HCl (Effexor) 75 mg TID PO Last administered on 09/21/18at 07:57; Start 09/20/18 at 09:00; Stop 09/21/18 at 11:33; Status DC Venlafaxine HCl (Effexor) 75 mg BID PO Last administered on 09/23/18at 19:48; Start 09/21/18 at 21:00; Stop 09/23/18 at 23:00; Status DC Venlafaxine HCl (Effexor) 75 mg DAILY PO Last administered on 09/25/18at 08:00; Start 09/24/18 at 09:00; Stop 09/26/18 at 12:00 Duloxetine HCl (Cymbalta) 30 mg DAILY PO Last administered on 09/25/18at 08:00; Start 09/22/18 at 09:00; Stop 09/29/18 at 12:00 Duloxetine HCl (Cymbalta) 60 mg DAILY PO ; Start 09/30/18 at 09:00 Ropinirole HCl (Requip) 0.5 mg TID PO Last administered on 09/25/18at 20:09; Start 09/24/18 at 14:00 Insulin Glargine (Lantus) 30 units BID SQ Last administered on 09/25/18at 20:14; Start 09/25/18 at 21:00 Insulin Human Lispro (HumaLOG) 18 units TIDAC SQ Last administered on 09/25/18at 17:20; Start 09/25/18 at 16:30 Active Scripts Active Reported Arthritis Pain Relief (Capsaicin) 42.5 Gm Cream..g. 42.5 Gm TP PRN BID PRN Guaifenesin Dm Syrup (Guaifenesin/Dextromethorphan) 5 Ml Syrup 10 Ml PO PRN Q4HRS PRN Zofran (Ondansetron Hcl) 4 Mg Tablet 4 Mg PO PRN TID PRN Mag-Al Plus Xs Suspension (Mag Hydrox/Al Hydrox/Simeth) 30 Ml Oral.susp 15 Ml PO PRN Q4HRS PRN Artificial Tears Eye Drops (Dextran 70/Hypromellose) 15 Ml Drops 1 Drop OP PRN QID PRN Acetaminophen 500 Mg Tablet 500 Mg PO PRN Q4HRS PRN Duoneb 0.5-3(2.5) Mg/3 Ml (Albuterol/Ipratropium) 3 Ml Ampul.neb 3 Ml NEB PRN TID PRN Effexor Xr (Venlafaxine Hcl) 75 Mg Cap.er.24h 75 Mg PO DAILY Effexor Xr (Venlafaxine Hcl) 150 Mg Cap.er.24h 150 Mg PO DAILY Potassium Chloride 10 Meq Tablet.er 10 Meq PO DAILY Meloxicam 15 Mg Tablet 15 Mg PO DAILY Lyrica (Pregabalin) 50 Mg Capsule 50 Mg PO TID Levothyroxine Sodium 50 Mcg Tablet 50 Mcg PO DAILYAC Levothyroxine Sodium 200 Mcg Tablet 200 Mcg PO DAILYAC Januvia (Sitagliptin Phosphate) 100 Mg Tablet 100 Mg PO DAILY Incruse Ellipta (Umeclidinium [place]) 62.5 Mcg Blst.w.dev 62.5 Mcg IH DAILY Furosemide 40 Mg Tablet 40 Mg PO DAILY Fexofenadine Hcl 180 Mg Tablet 60 Mg PO QHS Famotidine 20 Mg Tablet 20 Mg PO QHS Eliquis (Apixaban) 2.5 Mg Tablet 2.5 Mg PO BID Daily Vitamin + Iron (Multivitamins With Iron) 1 Each Tablet 1 Each PO BID Carbidopa-Levo 25-100 Mg Odt (Carbidopa/Levodopa) 1 Each Tab.rapdis 1.5 Tab PO QID Biotene Moisturizing Mouth (Saliva Stimulant Agents Comb.3) 44.3 Ml [place] 1 Wilfredo MM QID Baclofen 10 Mg Tablet 10 Mg PO BID Aspirin 81 Mg Tab.chew 81 Mg PO DAILY Novolog Flexpen (Insulin Aspart) 100 Unit/1 Ml Insuln.pen 16 Unit SQ TIDAC Levemir Flextouch (Insulin Detemir) 100 Unit/1 Ml Insuln.pen 28 Unit SQ BID Duoneb 0.5-3(2.5) Mg/3 Ml (Albuterol/Ipratropium) 3 Ml Ampul.neb 3 Ml NEB QID I have reviewed the current psychotropics carefully including drug interactions. Risk benefit ratio favors no change other than as noted in my dictated progress note. Diagnosis: Problems: (1) Anxiety disorder (2) Major depressive disorder, recurrent episode (3) Impulse control disorder (4) Parkinson's disease MONICA MCWILLIAMS MD September 25, 2018 22:31
--- NOTE | 2018-09-25 23:13 | PN ---
DATE: 09/25/2018 PSYCHIATRIC PROGRESS NOTE The patient was seen on rounds in the evening of 09/25/2018. Per nursing report, the patient slept 6-1/2 hours previous night. She has been anxious, restless, somewhat helpless, upset that nursing staff were encouraging her to use her hair brush by herself, but she is fully capable of doing. She was crying and tearful to monthly. Remains depressed, anxious. She is working on a crossword puzzle quite ardently prior to my visit. REVIEW OF SYSTEMS: Ambulation somewhat impaired with walker. No CV, , pulmonary, eye, ENT system symptoms on review. MENTAL STATUS EXAM: Reasonably oriented. Speech is coherent, abstraction fair, computation impaired, language function intact, attention span short. Mood and affect remains as noted above, labile, anxious. LABORATORY DATA: Reviewed. IMPRESSION: Unchanged from initial note. PLAN: No change from initial note. We will go ahead and augment her Cymbalta with Abilify 2 mg a day. Rest unchanged. MAN Natali MCWILLIAMS MD DR: REAL/rosanna JOB#: [id number] / [id number]
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
--- NOTE | 2018-09-26 00:38 | PN ---
DATE: 09/23/2018 PSYCHIATRIC PROGRESS NOTE This late entry 09/23/2018 covers elements not covered in my initial note. SUBJECTIVE: I met with the patient in the evening of 09/23/2018. The patient slept 6-1/4 hours previous night. The patient remains somewhat pleasant, delusional. CT head shows hydrocephaly and she has had a prior shunt placement. We will consult Dr. Glover. REVIEW OF SYSTEMS: No CV, , pulmonary, eye system symptoms on review. Gait unsteady with walker. MENTAL STATUS EXAM: Oriented to herself and situation. Speech is coherent, abstraction fair, computation impaired, language function intact, attention span short. Mood and affect remain somewhat anxious, withdrawn, labile at times. LABORATORY DATA: Reviewed. IMPRESSION: Unchanged from initial note. PLAN: No change from initial note. MAN Natali MCWILLIAMS MD DR: REAL/rosanna JOB#: [id number] / [id number]
[2018-09-26] MEDS: IPRATRPIUM/ALBUTEROL 0.5/2.5MG 3 ML NEBU. NEB SCH ×4 (05:53→20:18)
[2018-09-26 05:58] VITALS: BP 139/77
[2018-09-26] MEDS: LEVOTHYROXINE 100 MCG TABLET PO SCH (06:22)
[2018-09-26] MEDS: LEVOTHYROXINE 50 MCG TABLET PO SCH (06:22)
[2018-09-26] MEDS: ASPIRIN 81 MG TAB.CHEW PO SCH (08:04)
[2018-09-26] MEDS: BACLOFEN 10 MG TABLET PO SCH ×2 (08:04→19:51)
[2018-09-26] MEDS: FUROSEMIDE 40 MG TABLET PO SCH (08:05)
[2018-09-26] MEDS: CARBIDOPA/LEVODOPA 25/100MG TABLET PO SCH ×4 (08:05→19:50)
[2018-09-26] MEDS: DULoxetine HCL 30 MG CAPSULE.DR PO SCH (08:05)
[2018-09-26] MEDS: LINAGLIPTIN 5 MG TABLET PO SCH (08:05)
[2018-09-26] MEDS: VENLAFAXINE 75 MG TABLET. PO SCH (08:05)
[2018-09-26] MEDS: rOPINIRole 0.5 MG TABLET. PO SCH ×3 (08:05→19:49)
[2018-09-26] MEDS: MELOXICAM 15 MG TABLET. PO SCH (08:05)
[2018-09-26] MEDS: MULTIVITAMIN with MINERAL TABLET. PO SCH ×2 (08:05→19:50)
[2018-09-26] MEDS: POTASSIUM CHLORIDE 10 MEQ TABLET.ER. PO SCH (08:06)
[2018-09-26] MEDS: APIXABAN 2.5 MG TABLET PO SCH ×2 (08:06→19:51)
[2018-09-26] MEDS: INSULIN LISPRO 300 UNITS/3 ML INSULN.PEN. SQ SCH ×3 (08:07→17:42)
[2018-09-26] MEDS: ARIPiprazole 2 MG TABLET PO SCH (08:08)
[2018-09-26] MEDS: PREGABALIN 50 MG CAPSULE PO SCH ×3 (08:09→19:50)
[2018-09-26] MEDS: INSULIN GLARGINE 300 UNITS/3 ML INSULN.PEN. SQ SCH ×2 (08:10→20:48)
--- NOTE | 2018-09-26 10:22 | NUR ---
NATHALIE left msg. at both Dr. Greer's office, neurology, and Dr. Casiano's office, neurosurgeon, to set up follow up appointment for pt.
--- NOTE | 2018-09-26 11:38 | NUR ---
SW received permission from pt. to fax pt. paperwork to Dr. Casiano's office.
--- NOTE | 2018-09-26 12:09 | NUR ---
NATHALIE faxed pt. paperwork to Dr. Casiano's office and a disc of pt. CT scan will be placed in pt. file upon discharge on 09/28/2018.
--- NOTE | 2018-09-26 12:12 | NUR ---
SW received a call from Angela at Dr. Casiano's office stating she had received the fax but they would need the disc with pt. CT prior to making an appointment. NATHALIE spoke to Telma, Evelio at [facility], who said she would personally take pt. disc to Dr. Casiano's office on 09/28/2018 and have nursing staff at [facility] follow up with neurosurgery appointment. Contact information was passed on to Telma to set the appointment up and contact information for [facility] was given to Angela at Dr. Casiano's office for follow up.
[2018-09-26 16:29] VITALS: BP 132/88
--- NOTE | 2018-09-26 18:00 | NUR ---
Patient was in day room at shift change, she spent most of the day sitting at the table in the day room either participating in various group activities or playing with her toy monkey 'Christy'. Patient is disorganized, attention seeking, delusional, and potentially hallucinating. Throughout the day, patient was witnessed to have conversations with her toy monkey 'Christy'. She has been compliant with medications. Patient did act helpless on a couple of occasions, attempting to coerce staff into doing simple tasks, such as placing pills in her mouth, for her. Will continue to monitor and give report to oncoming shift.
[2018-09-26] MEDS: CETIRIZINE HCL 10 MG TABLET PO SCH (19:49)
[2018-09-26] MEDS: FAMOTIDINE 20 MG TABLET PO SCH (19:51)
--- NOTE | 2018-09-26 22:34 | PDOC ---
Exam Note: Bryce Note: Please also refer to the separate dictated note~for this date of service dictated separately.~Patient seen individually. Discussed the patient with Nursing staff reviewed the chart.~Reviewed interim history and current functioning. Reviewed vital signs,~Labs/ Radiology~and current medications noted below. Continue current treatment with the changes noted in the dictated addendum note Assessment: Vital Signs: Vital Signs Date Time Temp Pulse Resp B/P (MAP) Pulse Ox O2 Delivery O2 Flow Rate FiO2 09/26/18 21:11 98 Room Air 09/26/18 16:29 98.1 95 18 132/88 (103) I&O Intake and Output 09/26/18 06:59 Intake Total 1860 ml Balance 1860 ml Intake Oral 1860 ml # Voids 1 # Bowel Movements 1 Labs: Laboratory Tests Test 09/26/18 07:25 09/26/18 11:45 09/26/18 17:19 09/26/18 19:46 Glucose (Fingerstick) 150 mg/dL (70-99) H 230 mg/dL (70-99) H 149 mg/dL (70-99) H 206 mg/dL (70-99) H Current Medications: Meds: Current Medications Acetaminophen (Tylenol) 650 mg PRN Q6HRS PRN PO PAIN / TEMP; Start 09/19/18 at 23:15; Stop 09/20/18 at 01:50; Status DC Multi-Ingredient Ointment (Analgesic [place]) 1 wilfredo PRN QID PRN TP MUSCLE PAIN Las t administered on 09/21/18at 05:58; Start 09/19/18 at 23:15 Al Hydroxide/Mg Hydroxide (Mylanta Plus Xs) 15 ml PRN AFTMEALHC PRN PO DYSPEPSIA; Start 09/19/18 at 23:15; Stop 09/20/18 at 07:15; Status DC Magnesium Hydroxide (Milk Of Magnesia) 2,400 mg PRN QHS PRN PO CONSTIPATION; Start 09/19/18 at 23:15 Non-Formulary Medication (Venlafaxine Hcl (Effexor Xr)) 75 mg DAILY PO ; Start 09/20/18 at 09:00; Stop 09/20/18 at 09:00; Status DC Non-Formulary Medication (Venlafaxine Hcl (Effexor Xr)) 150 mg DAILY PO ; Start 09/20/18 at 09:00; Stop 09/20/18 at 09:00; Status DC Apixaban (Eliquis) 2.5 mg BID PO Last administered on 09/26/18 19:51; Start 09/20/18 at 09:00 Guaifenesin (Robitussin Dm) 10 ml PRN Q4HRS PRN PO COUGH; Start 09/20/18 at 00:45 Albuterol Sulfate (Ventolin) 2.5 mg PRN TID PRN NEB SHORTNESS OF BREATH; Start 09/20/18 at 00:45 Albuterol/ Ipratropium (Duoneb) 3 ml RTQID NEB Last administered on 09/26/18 20:18; Start 09/20/18 at 08:00 Al Hydroxide/Mg Hydroxide (Mylanta Plus Xs) 15 ml PRN Q4HRS PRN PO DYSPEPSIA; Start 09/20/18 at 00:45 Pregabalin (Lyrica) 50 mg TID PO Last administered on 09/26/18 19:50; Start 09/20/18 at 09:00 Saliva Substitute (Biotene Moisturizing Mouth) 1 spray QID MM Last administered on 09/22/18 17:00; Start 09/20/18 at 09:00; Stop 09/23/18 at 19:43; Status DC Acetaminophen (Tylenol) 500 mg PRN Q4HRS PRN PO PAIN / TEMP; Start 09/20/18 at 00:45 Aspirin (Children'S Aspirin) 81 mg DAILYWBKFT PO Last administered on 09/26/18at 08:04; Start 09/20/18 at 08:00 Baclofen (Lioresal) 10 mg BID PO Last administered on 09/26/18 19:51; Start 09/20/18 at 09:00 Capsaicin (Zostrix) 1 wilfredo PRN BID PRN TP PAIN; Start 09/20/18 at 02:00 Carbidopa/Levodopa (Sinemet 25/100) 1.5 tab QID PO Last administered on 09/26/18 19:50; Start 09/20/18 at 09:00 Artificial Tears (Artificial Tears) 1 drop PRN QID PRN OU DRY EYES; Start 09/20/18 at 02:00 Famotidine (Pepcid) 20 mg QHS PO Last administered on 09/26/18 19:51; Start 09/20/18 at 21:00 Cetirizine HCl (ZyrTEC) 10 mg QHS PO Last administered on 09/26/18 19:49; Start 09/20/18 at 21:00 Furosemide (Lasix) 40 mg DAILY PO Last administered on 09/26/18 08:05; Start 09/20/18 at 09:00 Insulin Human Lispro (HumaLOG) 16 units TIDAC SQ Last administered on 09/25/18 12:05; Start 09/20/18 at 07:30; Stop 09/25/18 at 15:05; Status DC Insulin Glargine (Lantus) 28 units BID SQ Last administered on 09/25/18 08:04; Start 09/20/18 at 09:00; Stop 09/25/18 at 15:05; Status DC Levothyroxine Sodium (Synthroid) 50 mcg DAILY06 PO Last administered on 09/26/18 06:22; Start 09/20/18 at 06:00 Levothyroxine Sodium (Synthroid) 200 mcg DAILY06 PO Last administered on 09/26/18 06:22; Start 09/20/18 at 06:00 Meloxicam (Mobic) 15 mg DAILY PO Last administered on 09/26/18 08:05; Start 09/20/18 at 09:00 Multivitamins/ Calcium (Thera-M Plus) 1 tab BID PO Last administered on 09/26/18 19:50; Start 09/20/18 at 09:00 Ondansetron HCl (Zofran Odt) 4 mg PRN TID PRN PO NAUSEA; Start 09/20/18 at 00:45 Potassium Chloride (Klor-Con) 10 meq DAILYWBKFT PO Last administered on 08:06; Start 09/20/18 at 08:00 Linagliptin (Tradjenta) 5 mg DAILY PO Last administered on 09/26/18 08:05; Start 09/20/18 at 09:00 Non-Formulary Medication (Umeclidinium [place] (Incruse Ellipta)) 62.5 mcg DAILY IH ; Start 09/20/18 at 09:00; Stop 09/20/18 at 09:00; Status DC Venlafaxine HCl (Effexor) 75 mg TID PO Last administered on 09/21/18at 07:57; Start 09/20/18 at 09:00; Stop 09/21/18 at 11:33; Status DC Venlafaxine HCl (Effexor) 75 mg BID PO Last administered on 09/23/18at 19:48; Start 09/21/18 at 21:00; Stop 09/23/18 at 23:00; Status DC Venlafaxine HCl (Effexor) 75 mg DAILY PO Last administered on 09/26/18 08:05; Start 09/24/18 at 09:00; Stop 09/26/18 at 12:00; Status DC Duloxetine HCl (Cymbalta) 30 mg DAILY PO Last administered on 09/26/18 08:05; Start 09/22/18 at 09:00; Stop 09/29/18 at 12:00 Duloxetine HCl (Cymbalta) 60 mg DAILY PO ; Start 09/30/18 at 09:00 Ropinirole HCl (Requip) 0.5 mg TID PO Last administered on 09/26/18 19:49; Start 09/24/18 at 14:00 Insulin Glargine (Lantus) 30 units BID SQ Last administered on 09/26/18 20:48; Start 09/25/18 at 21:00 Insulin Human Lispro (HumaLOG) 18 units TIDAC SQ Last administered on 09/26/18 17:42; Start 09/25/18 at 16:30 Aripiprazole (Abilify) 2 mg DAILY PO Last administered on 09/26/18 08:08; Start 09/26/18 at 09:00 Active Scripts Active Reported Arthritis Pain Relief (Capsaicin) 42.5 Gm Cream..g. 42.5 Gm TP PRN BID PRN Guaifenesin Dm Syrup (Guaifenesin/Dextromethorphan) 5 Ml Syrup 10 Ml PO PRN Q4HRS PRN Zofran (Ondansetron Hcl) 4 Mg Tablet 4 Mg PO PRN TID PRN Mag-Al Plus Xs Suspension (Mag Hydrox/Al Hydrox/Simeth) 30 Ml Oral.susp 15 Ml PO PRN Q4HRS PRN Artificial Tears Eye Drops (Dextran 70/Hypromellose) 15 Ml Drops 1 Drop OP PRN QID PRN Acetaminophen 500 Mg Tablet 500 Mg PO PRN Q4HRS PRN Duoneb 0.5-3(2.5) Mg/3 Ml (Albuterol/Ipratropium) 3 Ml Ampul.neb 3 Ml NEB PRN TID PRN Effexor Xr (Venlafaxine Hcl) 75 Mg Cap.er.24h 75 Mg PO DAILY Effexor Xr (Venlafaxine Hcl) 150 Mg Cap.er.24h 150 Mg PO DAILY Potassium Chloride 10 Meq Tablet.er 10 Meq PO DAILY Meloxicam 15 Mg Tablet 15 Mg PO DAILY Lyrica (Pregabalin) 50 Mg Capsule 50 Mg PO TID Levothyroxine Sodium 50 Mcg Tablet 50 Mcg PO DAILYAC Levothyroxine Sodium 200 Mcg Tablet 200 Mcg PO DAILYAC Januvia (Sitagliptin Phosphate) 100 Mg Tablet 100 Mg PO DAILY Incruse Ellipta (Umeclidinium [place]) 62.5 Mcg Blst.w.dev 62.5 Mcg IH DAILY Furosemide 40 Mg Tablet 40 Mg PO DAILY Fexofenadine Hcl 180 Mg Tablet 60 Mg PO QHS Famotidine 20 Mg Tablet 20 Mg PO QHS Eliquis (Apixaban) 2.5 Mg Tablet 2.5 Mg PO BID Daily Vitamin + Iron (Multivitamins With Iron) 1 Each Tablet 1 Each PO BID Carbidopa-Levo 25-100 Mg Odt (Carbidopa/Levodopa) 1 Each Tab.rapdis 1.5 Tab PO QID Biotene Moisturizing Mouth (Saliva Stimulant Agents Comb.3) 44.3 Ml [place] 1 Wilfredo MM QID Baclofen 10 Mg Tablet 10 Mg PO BID Aspirin 81 Mg Tab.chew 81 Mg PO DAILY Novolog Flexpen (Insulin Aspart) 100 Unit/1 Ml Insuln.pen 16 Unit SQ TIDAC Levemir Flextouch (Insulin Detemir) 100 Unit/1 Ml Insuln.pen 28 Unit SQ BID Duoneb 0.5-3(2.5) Mg/3 Ml (Albuterol/Ipratropium) 3 Ml Ampul.neb 3 Ml NEB QID I have reviewed the current psychotropics carefully including drug interactions. Risk benefit ratio favors no change other than as noted in my dictated progress note. Diagnosis: Problems: (1) Anxiety disorder (2) Major depressive disorder, recurrent episode (3) Impulse control disorder (4) Parkinson's disease MONICA MCWILLIAMS MD September 26, 2018 22:34
--- NOTE | 2018-09-26 22:46 | PN ---
DATE: 09/26/2018 PSYCHIATRIC PROGRESS NOTE This note covers elements not covered in my initial note 09/26/2018. SUBJECTIVE: I met with the patient in the evening. The patient was pleasant previous night, working on her word search, upset that Heather took her toy monkey today. Appeared somewhat irritable, helpless in the morning, refusing to do things for herself that she actually could. She slept 6-1/2 hours. REVIEW OF SYSTEMS: Ambulation impaired. No CV, , pulmonary, eye, ENT system symptoms on review. MENTAL STATUS EXAM: Oriented to herself and situation. Speech is coherent, abstraction fair, computation impaired, language function intact, attention span short. Mood and affect remain somewhat anxious, labile. LABORATORY DATA: Reviewed. IMPRESSION: Unchanged from initial note. PLAN: No change from initial note. An Abilify was added as a mood stabilizer and to augment the Cymbalta. MONICA MCWILLIAMS MD DR: REAL/rosanna JOB#: [id number] / [id number]
--- NOTE | 2018-09-27 02:50 | NUR ---
Pt in day room early in shift social and no behaviors observed. HS meds taken without difficulty. Has been sleeping well tonight.
[2018-09-27 06:00] VITALS: BP 151/84
[2018-09-27] MEDS: IPRATRPIUM/ALBUTEROL 0.5/2.5MG 3 ML NEBU. NEB SCH ×4 (06:03→20:00)
[2018-09-27] MEDS: LEVOTHYROXINE 100 MCG TABLET PO SCH (06:27)
[2018-09-27] MEDS: LEVOTHYROXINE 50 MCG TABLET PO SCH (06:27)
[2018-09-27] MEDS: ASPIRIN 81 MG TAB.CHEW PO SCH (07:51)
[2018-09-27] MEDS: LINAGLIPTIN 5 MG TABLET PO SCH (07:52)
[2018-09-27] MEDS: MULTIVITAMIN with MINERAL TABLET. PO SCH ×2 (07:52→20:03)
[2018-09-27] MEDS: MELOXICAM 15 MG TABLET. PO SCH (07:52)
[2018-09-27] MEDS: rOPINIRole 0.5 MG TABLET. PO SCH ×3 (07:52→22:31)
[2018-09-27] MEDS: ARIPiprazole 2 MG TABLET PO SCH (07:53)
[2018-09-27] MEDS: DULoxetine HCL 30 MG CAPSULE.DR PO SCH (07:53)
[2018-09-27] MEDS: POTASSIUM CHLORIDE 10 MEQ TABLET.ER. PO SCH (07:53)
[2018-09-27] MEDS: BACLOFEN 10 MG TABLET PO SCH ×2 (07:53→20:03)
[2018-09-27] MEDS: FUROSEMIDE 40 MG TABLET PO SCH (07:53)
[2018-09-27] MEDS: CARBIDOPA/LEVODOPA 25/100MG TABLET PO SCH ×4 (07:53→20:04)
[2018-09-27] MEDS: PREGABALIN 50 MG CAPSULE PO SCH ×3 (07:54→22:31)
[2018-09-27] MEDS: APIXABAN 2.5 MG TABLET PO SCH ×2 (07:54→20:03)
[2018-09-27] MEDS: INSULIN GLARGINE 300 UNITS/3 ML INSULN.PEN. SQ SCH ×2 (07:55→20:08)
[2018-09-27] MEDS: INSULIN LISPRO 300 UNITS/3 ML INSULN.PEN. SQ SCH ×3 (07:56→17:35)
--- NOTE | 2018-09-27 10:40 | NUR ---
[facility] Social Work Discharge Planning Form Patient Name KADE ELIZONDO Admit Date: 09/19/2018 DISCHARGE PLAN Discharge Destination: [facility] Care Assessment: NA Level II Assessment: NA Transportation: [facility] to transport pt. on 09/28/2018 at 11:00 a.m. Special Instructions/Notes: Please fax discharge paperwork, medication list, and 30 day skilled orders to [phone]. DISCHARGE TO FACILITY Facility: [facility] Address: [address] [place] [address] Contact Name: Telma, Evelio Contact Name: Adelaida, Nurse Contact Name: NATHALIE Larkin PCP: Dr. Putnam Psychiatrist: None Appointment Information: Pt. needs follow up neurosurgery appointment. Dr. Carrasco office has been contacted and faxed Imaging Report. Dr. Casiano will need pt. CT disc prior to arranging an appointment. Pt. will be discharged with CT disc requested. Telma, Admission from [facility], will deliver disc to Dr. Carrasco office and will have their nursing staff follow up with arranging an appointment for pt. Dr. Rodolfo Casiano [address] [place] [address] ext. [phone] (P) [phone] (F)
[2018-09-27] MEDS: ACETAMINOPHEN 500 MG TABLET PO PRN ×2 (10:49→10:57)
--- NOTE | 2018-09-27 11:54 | NUR ---
NATHALIE faxed updated pt. paperwork to Telma, Admissions at [facility].
--- NOTE | 2018-09-27 13:38 | NUR ---
Pt located in dayroom for assessment and med distribution, participating in group. Pt interactive, calm, and compliant for meds and assessment.
[2018-09-27 16:30] VITALS: BP 117/81
[2018-09-27] MEDS: FAMOTIDINE 20 MG TABLET PO SCH (20:03)
[2018-09-27] MEDS: CETIRIZINE HCL 10 MG TABLET PO SCH (20:04)
--- NOTE | 2018-09-27 22:24 | PDOC ---
Exam Note: Bryce Note: Please also refer to the separate dictated note~for this date of service dictated separately.~Patient seen individually. Discussed the patient with Nursing staff reviewed the chart.~Reviewed interim history and current functioning. Reviewed vital signs,~Labs/ Radiology~and current medications noted below. Continue current treatment with the changes noted in the dictated addendum note Assessment: Vital Signs: Vital Signs Date Time Temp Pulse Resp B/P (MAP) Pulse Ox O2 Delivery O2 Flow Rate FiO2 09/27/18 16:30 97.2 95 16 117/81 (93) 97 09/27/18 15:42 Room Air I&O Intake and Output 09/27/18 07:00 Intake Total 1500 ml Balance 1500 ml Intake Oral 1500 ml Labs: Laboratory Tests Test 09/27/18 07:24 09/27/18 11:54 09/27/18 16:35 09/27/18 19:07 Glucose (Fingerstick) 148 mg/dL (70-99) H 187 mg/dL (70-99) H 155 mg/dL (70-99) H 202 mg/dL (70-99) H Current Medications: Meds: Current Medications Acetaminophen (Tylenol) 650 mg PRN Q6HRS PRN PO PAIN / TEMP; Start 09/19/18 at 23:15; Stop 09/20/18 at 01:50; Status DC Multi-Ingredient Ointment (Analgesic [place]) 1 wilfredo PRN QID PRN TP MUSCLE PAIN Last administered on 09/21/18at 05:58; Start 09/19/18 at 23:15 Al Hydroxide/Mg Hydroxide (Mylanta Plus Xs) 15 ml PRN AFTMEALHC PRN PO DYSPEPSIA; Start 09/19/18 at 23:15; Stop 09/20/18 at 07:15; Status DC Magnesium Hydroxide (Milk Of Magnesia) 2,400 mg PRN QHS PRN PO CONSTIPATION; Start 09/19/18 at 23:15 Non-Formulary Medication (Venlafaxine Hcl (Effexor Xr)) 75 mg DAILY PO ; Start 09/20/18 at 09:00; Stop 09/20/18 at 09:00; Status DC Non-Formulary Medication (Venlafaxine Hcl (Effexor Xr)) 150 mg DAILY PO ; Start 09/20/18 at 09:00; Stop 09/20/18 at 09:00; Status DC Apixaban (Eliquis) 2.5 mg BID PO Last administered on 09/27/18 20:03; Start 09/20/18 at 09:00 Guaifenesin (Robitussin Dm) 10 ml PRN Q4HRS PRN PO COUGH; Start 09/20/18 at 00:45 Albuterol Sulfate (Ventolin) 2.5 mg PRN TID PRN NEB SHORTNESS OF BREATH; Start 09/20/18 at 00:45 Albuterol/ Ipratropium (Duoneb) 3 ml RTQID NEB Last administered on 09/27/18 15:39; Start 09/20/18 at 08:00 Al Hydroxide/Mg Hydroxide (Mylanta Plus Xs) 15 ml PRN Q4HRS PRN PO DYSPEPSIA; Start 09/20/18 at 00:45 Pregabalin (Lyrica) 50 mg TID PO Last administered on 09/27/18 12:43; Start 09/20/18 at 09:00 Saliva Substitute (Biotene Moisturizing Mouth) 1 spray QID MM Last administered on 09/22/18 17:00; Start 09/20/18 at 09:00; Stop 09/23/18 at 19:43; Status DC Acetaminophen (Tylenol) 500 mg PRN Q4HRS PRN PO PAIN / TEMP Last administered on 09/27/18 10:57; Start 09/20/18 at 00:45 Aspirin (Children'S Aspirin) 81 mg DAILYWBKFT PO Last administered on 09/27/18 07:51; Start 09/20/18 at 08:00 Baclofen (Lioresal) 10 mg BID PO Last administered on 09/27/18 20:03; Start 09/20/18 at 09:00 Capsaicin (Zostrix) 1 wilfredo PRN BID PRN TP PAIN; Start 09/20/18 at 02:00 Carbidopa/Levodopa (Sinemet 25/100) 1.5 tab QID PO Last administered on 09/27/18 20:04; Start 09/20/18 at 09:00 Artificial Tears (Artificial Tears) 1 drop PRN QID PRN OU DRY EYES; Start 09/20/18 at 02:00 Famotidine (Pepcid) 20 mg QHS PO Last administered on 09/27/18 20:03; Start 09/20/18 at 21:00 Cetirizine HCl (ZyrTEC) 10 mg QHS PO Last administered on 09/27/18 20:04; Start 09/20/18 at 21:00 Furosemide (Lasix) 40 mg DAILY PO Last administered on 09/27/18 07:53; Start 09/20/18 at 09:00 Insulin Human Lispro (HumaLOG) 16 units TIDAC SQ Last administered on 09/25/18 12:05; Start 09/20/18 at 07:30; Stop 09/25/18 at 15:05; Status DC Insulin Glargine (Lantus) 28 units BID SQ Last administered on 09/25/18 08:04; Start 09/20/18 at 09:00; Stop 09/25/18 at 15:05; Status DC Levothyroxine Sodium (Synthroid) 50 mcg DAILY06 PO Last administered on 09/27/18 06:27; Start 09/20/18 at 06:00 Levothyroxine Sodium (Synthroid) 200 mcg DAILY06 PO Last administered on 09/27/18 06:27; Start 09/20/18 at 06:00 Meloxicam (Mobic) 15 mg DAILY PO Last administered on 09/27/18 07:52; Start 09/20/18 at 09:00 Multivitamins/ Calcium (Thera-M Plus) 1 tab BID PO Last administered on 09/27/18 20:03; Start 09/20/18 at 09:00 Ondansetron HCl (Zofran Odt) 4 mg PRN TID PRN PO NAUSEA; Start 09/20/18 at 00:45 Potassium Chloride (Klor-Con) 10 meq DAILYWBKFT PO Last administered on 08/31 07:53; Start 09/20/18 at 08:00 Linagliptin (Tradjenta) 5 mg DAILY PO Last administered on 09/27/18 07:52; Start 09/20/18 at 09:00 Non-Formulary Medication (Umeclidinium [place] (Incruse Ellipta)) 62.5 mcg DAILY IH ; Start 09/20/18 at 09:00; Stop 09/20/18 at 09:00; Status DC Venlafaxine HCl (Effexor) 75 mg TID PO Last administered on 09/21/18at 07:57; Start 09/20/18 at 09:00; Stop 09/21/18 at 11:33; Status DC Venlafaxine HCl (Effexor) 75 mg BID PO Last administered on 09/23/18at 19:48; Start 09/21/18 at 21:00; Stop 09/23/18 at 23:00; Status DC Venlafaxine HCl (Effexor) 75 mg DAILY PO Last administered on 09/26/18at 08:05; Start 09/24/18 at 09:00; Stop 09/26/18 at 12:00; Status DC Duloxetine HCl (Cymbalta) 30 mg DAILY PO Last administered on 09/27/18at 07:53; Start 09/22/18 at 09:00; Stop 09/29/18 at 12:00 Duloxetine HCl (Cymbalta) 60 mg DAILY PO ; Start 09/30/18 at 09:00 Ropinirole HCl (Requip) 0.5 mg TID PO Last administered on 09/27/18at 12:43; Start 09/24/18 at 14:00 Insulin Glargine (Lantus) 30 units BID SQ Last administered on 09/27/18 20:08; Start 09/25/18 at 21:00 Insulin Human Lispro (HumaLOG) 18 units TIDAC SQ Last administered on 09/27/18at 17:35; Start 09/25/18 at 16:30 Aripiprazole (Abilify) 2 mg DAILY PO Last administered on 09/27/18 07:53; Start 09/26/18 at 09:00 Active Scripts Active Reported Arthritis Pain Relief (Capsaicin) 42.5 Gm Cream..g. 42.5 Gm TP PRN BID PRN Guaifenesin Dm Syrup (Guaifenesin/Dextromethorphan) 5 Ml Syrup 10 Ml PO PRN Q4HRS PRN Zofran (Ondansetron Hcl) 4 Mg Tablet 4 Mg PO PRN TID PRN Mag-Al Plus Xs Suspension (Mag Hydrox/Al Hydrox/Simeth) 30 Ml Oral.susp 15 Ml PO PRN Q4HRS PRN Artificial Tears Eye Drops (Dextran 70/Hypromellose) 15 Ml Drops 1 Drop OP PRN QID PRN Acetaminophen 500 Mg Tablet 500 Mg PO PRN Q4HRS PRN Duoneb 0.5-3(2.5) Mg/3 Ml (Albuterol/Ipratropium) 3 Ml Ampul.neb 3 Ml NEB PRN TID PRN Effexor Xr (Venlafaxine Hcl) 75 Mg Cap.er.24h 75 Mg PO DAILY Effexor Xr (Venlafaxine Hcl) 150 Mg Cap.er.24h 150 Mg PO DAILY Potassium Chloride 10 Meq Tablet.er 10 Meq PO DAILY Meloxicam 15 Mg Tablet 15 Mg PO DAILY Lyrica (Pregabalin) 50 Mg Capsule 50 Mg PO TID Levothyroxine Sodium 50 Mcg Tablet 50 Mcg PO DAILYAC Levothyroxine Sodium 200 Mcg Tablet 200 Mcg PO DAILYAC Januvia (Sitagliptin Phosphate) 100 Mg Tablet 100 Mg PO DAILY Incruse Ellipta (Umeclidinium [place]) 62.5 Mcg Blst.w.dev 62.5 Mcg IH DAILY Furosemide 40 Mg Tablet 40 Mg PO DAILY Fexofenadine Hcl 180 Mg Tablet 60 Mg PO QHS Famotidine 20 Mg Tablet 20 Mg PO QHS Eliquis (Apixaban) 2.5 Mg Tablet 2.5 Mg PO BID Daily Vitamin + Iron (Multivitamins With Iron) 1 Each Tablet 1 Each PO BID Carbidopa-Levo 25-100 Mg Odt (Carbidopa/Levodopa) 1 Each Tab.rapdis 1.5 Tab PO QID Biotene Moisturizing Mouth (Saliva Stimulant Agents Comb.3) 44.3 Ml [place] 1 Wilfredo MM QID Baclofen 10 Mg Tablet 10 Mg PO BID Aspirin 81 Mg Tab.chew 81 Mg PO DAILY Novolog Flexpen (Insulin Aspart) 100 Unit/1 Ml Insuln.pen 16 Unit SQ TIDAC Levemir Flextouch (Insulin Detemir) 100 Unit/1 Ml Insuln.pen 28 Unit SQ BID Duoneb 0.5-3(2.5) Mg/3 Ml (Albuterol/Ipratropium) 3 Ml Ampul.neb 3 Ml NEB QID I have reviewed the current psychotropics carefully including drug interactions. Risk benefit ratio favors no change other than as noted in my dictated progress note. Diagnosis: Problems: (1) Anxiety disorder (2) Major depressive disorder, recurrent episode (3) Impulse control disorder (4) Parkinson's disease MONICA MCWILLIAMS MD September 27, 2018 22:24
--- NOTE | 2018-09-28 01:35 | NUR ---
HELD RT TX DUE TO TRIAGE, RT NEEDED IN ER. RT NOTIFIED TAYO OR JORGE.
[2018-09-28] MEDS ORDERED: ARIP2TAB35 PO (03:07)
[2018-09-28] MEDS ORDERED: DULO60CA6 PO (03:08)
[2018-09-28] MEDS ORDERED: MAGN400O7 PO (03:10)
[2018-09-28] MEDS ORDERED: METH29OI TP (03:11)
[2018-09-28] MEDS ORDERED: GUAI237L83 PO (03:13)
[2018-09-28] MEDS ORDERED: ROPI0.5T PO (03:14)
[2018-09-28] MEDS: IPRATRPIUM/ALBUTEROL 0.5/2.5MG 3 ML NEBU. NEB SCH ×2 (04:53→11:10)
--- NOTE | 2018-09-28 05:36 | NUR ---
Last evening pt social in day room and doing word search puzzles. She is excited about possible dc today. No behaviors and compliant with meds.
[2018-09-28 06:13] VITALS: BP 131/81
[2018-09-28] MEDS: LEVOTHYROXINE 100 MCG TABLET PO SCH (06:25)
[2018-09-28] MEDS: LEVOTHYROXINE 50 MCG TABLET PO SCH (06:26)
[2018-09-28] MEDS: ASPIRIN 81 MG TAB.CHEW PO SCH (08:25)
[2018-09-28] MEDS: FUROSEMIDE 40 MG TABLET PO SCH (08:26)
[2018-09-28] MEDS: POTASSIUM CHLORIDE 10 MEQ TABLET.ER. PO SCH (08:26)
[2018-09-28] MEDS: APIXABAN 2.5 MG TABLET PO SCH (08:26)
[2018-09-28] MEDS: ARIPiprazole 2 MG TABLET PO SCH (08:26)
[2018-09-28] MEDS: DULoxetine HCL 30 MG CAPSULE.DR PO SCH (08:26)
[2018-09-28] MEDS: rOPINIRole 0.5 MG TABLET. PO SCH (08:27)
[2018-09-28] MEDS: CARBIDOPA/LEVODOPA 25/100MG TABLET PO SCH (08:27)
[2018-09-28] MEDS: PREGABALIN 50 MG CAPSULE PO SCH (08:27)
[2018-09-28] MEDS: BACLOFEN 10 MG TABLET PO SCH (08:27)
[2018-09-28] MEDS: MELOXICAM 15 MG TABLET. PO SCH (08:27)
[2018-09-28] MEDS: LINAGLIPTIN 5 MG TABLET PO SCH (08:28)
[2018-09-28] MEDS: MULTIVITAMIN with MINERAL TABLET. PO SCH (08:28)
[2018-09-28] MEDS: INSULIN LISPRO 300 UNITS/3 ML INSULN.PEN. SQ SCH ×2 (08:31→12:16)
[2018-09-28] MEDS: INSULIN GLARGINE 300 UNITS/3 ML INSULN.PEN. SQ SCH (08:58)
--- NOTE | 2018-09-28 09:39 | NUR ---
WEEKLY ACTIVITY THERAPY NOTE Date of Admission: 09/19/2018 Date of AT Assessment: 09/22/2018 Goal aimed: to increase independence Initial goal: Pt. will participate in at least one Activity Therapy group, at least moderately, per day. Weekly progress towards goal: did not achieve, no participation on Tuesday and one minimal on Tuesday Group participation level: moderate Weekly highlights: singing along with music bingo on Tuesday, full participation with words within words on Tuesday Behaviors observed: social with peers, interacts with her stuffed monkey, tired over the weekend Plan: no change to goal Beneficial adaptations: enjoys trivia, word activities (Sudoku, word searches, crosswords)
--- NOTE | 2018-09-28 09:42 | NUR ---
Miri has had a great morning. Upon assessment she was sitting in the dayroom talking to other patient's and staff. Took medications as prescribed, allowed for morning assessment. No signs of agitation noted, will continue to monitor.
--- NOTE | 2018-09-28 13:25 | NUR ---
Transition Record was faxed to follow-up provider with the following elements: Reason for admission, procedures, tests, principal diagnosis, pending studies, patient instructions, 22/11 contact information for unit, phone number to obtain pending test results, plan for follow-up care, physician follow-up, advanced directive information, and medication list with dose, duration and instructions. This information was included in the following documents: History and physical, lab results, study results, progress notes, social work planning form, DC instruction form, patient visit summary, and medication reconciliation form. Date & time record faxed: 09/28/18 @1012 [phone], [phone] Record discussed with/ report given to: Hope
--- NOTE | 2018-09-28 18:00 | PDOC ---
Exam Note: Bryce Note: Please also refer to the separate dictated note~for this date of service dictated separately.~Patient seen individually. Discussed the patient with Nursing staff reviewed the chart.~Reviewed interim history and current functioning. Reviewed vital signs,~Labs/ Radiology~and current medications noted below. Continue current treatment with the changes noted in the dictated addendum note Assessment: Vital Signs: Vital Signs Date Time Temp Pulse Resp B/P (MAP) Pulse Ox O2 Delivery O2 Flow Rate FiO2 09/28/18 11:10 97 Room Air 09/28/18 06:13 97.5 88 20 131/81 (98) I&O Intake and Output 09/28/18 07:00 Intake Total 1800 ml Balance 1800 ml Intake Oral 1800 ml # Voids 1 # Bowel Movements 1 Labs: Laboratory Tests Test 09/27/18 19:07 09/28/18 08:00 09/28/18 11:35 Glucose (Fingerstick) 202 mg/dL (70-99) H 160 mg/dL (70-99) H 199 mg/dL (70-99) H Current Medications: Meds: Current Medications Acetaminophen (Tylenol) 650 mg PRN Q6HRS PRN PO PAIN / TEMP; Start 09/19/18 at 23:15; Stop 09/20/18 at 01:50; Status DC Multi-Ingredient Ointment (Analgesic [place]) 1 wilfredo PRN QID PRN TP MUSCLE PAIN Last administered on 09/21/18at 05:58; Start 09/19/18 at 23:15; Stop 09/28/18 at 13:31; Status DC Al Hydroxide/Mg Hydroxide (Mylanta Plus Xs) 15 ml PRN AFTMEALHC PRN PO DYSPEPSIA; Start 09/19/18 at 23:15; Stop 09/20/18 at 07:15; Status DC Magnesium Hydroxide (Milk Of Magnesia) 2,400 mg PRN QHS PRN PO CONSTIPATION; Start 09/19/18 at 23:15; Stop 09/28/18 at 13:31; Status DC Non-Formulary Medication (Venlafaxine Hcl (Effexor Xr)) 75 mg DAILY PO ; Start 09/20/18 at 09:00; Stop 09/20/18 at 09:00; Status DC Non-Formulary Medication (Venlafaxine Hcl (Effexor Xr)) 150 mg DAILY PO ; Start 09/20/18 at 09:00; Stop 09/20/18 at 09:00; Status DC Apixaban (Eliquis) 2.5 mg BID PO Last administered on 09/28/18at 08:26; Start 09/20/18 at 09:00; Stop 09/28/18 at 13:31; Status DC Guaifenesin (Robitussin Dm) 10 ml PRN Q4HRS PRN PO COUGH; Start 09/20/18 at 00:45; Stop 09/28/18 at 13:31; Status DC Albuterol Sulfate (Ventolin) 2.5 mg PRN TID PRN NEB SHORTNESS OF BREATH; Start 09/20/18 at 00:45; Stop 09/28/18 at 13:31; Status DC Albuterol/ Ipratropium (Duoneb) 3 ml RTQID NEB Last administered on 09/28/18at 11:10; Start 09/20/18 at 08:00; Stop 09/28/18 at 13:31; Status DC Al Hydroxide/Mg Hydroxide (Mylanta Plus Xs) 15 ml PRN Q4HRS PRN PO DYSPEPSIA; Start 09/20/18 at 00:45; Stop 09/28/18 at 13:31; Status DC Pregabalin (Lyrica) 50 mg TID PO Last administered on 09/28/18at 08:27; Start 09/20/18 at 09:00; Stop 09/28/18 at 13:31; Status DC Saliva Substitute (Biotene Moisturizing Mouth) 1 spray QID MM Last administered on 09/22/18at 17:00; Start 09/20/18 at 09:00; Stop 09/23/18 at 19:43; Status DC Acetaminophen (Tylenol) 500 mg PRN Q4HRS PRN PO PAIN / TEMP Last administered on 09/27/18at 10:57; Start 09/20/18 at 00:45; Stop 09/28/18 at 13:31; Status DC Aspirin (Children'S Aspirin) 81 mg DAILYWBKFT PO Last administered on 09/28/18at 08:25; Start 09/20/18 at 08:00; Stop 09/28/18 at 13:31; Status DC Baclofen (Lioresal) 10 mg BID PO Last administered on 09/28/18 08:27; Start 09/20/18 at 09:00; Stop 09/28/18 at 13:31; Status DC Capsaicin (Zostrix) 1 wilfredo PRN BID PRN TP PAIN; Start 09/20/18 at 02:00; Stop 09/28/18 at 13:31; Status DC Carbidopa/Levodopa (Sinemet 25/100) 1.5 tab QID PO Last administered on 09/28/18 08:27; Start 09/20/18 at 09:00; Stop 09/28/18 at 13:31; Status DC Artificial Tears (Artificial Tears) 1 drop PRN QID PRN OU DRY EYES; Start 09/20/18 at 02:00; Stop 09/28/18 at 13:31; Status DC Famotidine (Pepcid) 20 mg QHS PO Last administered on 09/27/18 20:03; Start 09/20/18 at 21:00; Stop 09/28/18 at 13:31; Status DC Cetirizine HCl (ZyrTEC) 10 mg QHS PO Last administered on 09/27/18 20:04; Start 09/20/18 at 21:00; Stop 09/28/18 at 13:31; Status DC Furosemide (Lasix) 40 mg DAILY PO Last administered on 09/28/18 08:26; Start 09/20/18 at 09:00; Stop 09/28/18 at 13:31; Status DC Insulin Human Lispro (HumaLOG) 16 units TIDAC SQ Last administered on 09/25/18 12:05; Start 09/20/18 at 07:30; Stop 09/25/18 at 15:05; Status DC Insulin Glargine (Lantus) 28 units BID SQ Last administered on 09/25/18 08:04; Start 09/20/18 at 09:00; Stop 09/25/18 at 15:05; Status DC Levothyroxine Sodium (Synthroid) 50 mcg DAILY06 PO Last administered on 09/28/18 06:26; Start 09/20/18 at 06:00; Stop 09/28/18 at 13:31; Status DC Levothyroxine Sodium (Synthroid) 200 mcg DAILY06 PO Last administered on 09/28/18 06:25; Start 09/20/18 at 06:00; Stop 09/28/18 at 13:31; Status DC Meloxicam (Mobic) 15 mg DAILY PO Last administered on 09/28/18 08:27; Start 09/20/18 at 09:00; Stop 09/28/18 at 13:31; Status DC Multivitamins/ Calcium (Thera-M Plus) 1 tab BID PO Last administered on 09/28/18 08:28; Start 09/20/18 at 09:00; Stop 09/28/18 at 13:31; Status DC Ondansetron HCl (Zofran Odt) 4 mg PRN TID PRN PO NAUSEA; Start 09/20/18 at 00:45; Stop 09/28/18 at 13:31; Status DC Potassium Chloride (Klor-Con) 10 meq DAILYWBKFT PO Last administered on 09/28/18 08:26; Start 09/20/18 at 08:00; Stop 09/28/18 at 13:31; Status DC Linagliptin (Tradjenta) 5 mg DAILY PO Last administered on 09/28/18 08:28; Start 09/20/18 at 09:00; Stop 09/28/18 at 13:31; Status DC Non-Formulary Medication (Umeclidinium [place] (Incruse Ellipta)) 62.5 mcg DAILY IH ; Start 09/20/18 at 09:00; Stop 09/20/18 at 09:00; Status DC Venlafaxine HCl (Effexor) 75 mg TID PO Last administered on 09/21/18at 07:57; Start 09/20/18 at 09:00; Stop 09/21/18 at 11:33; Status DC Venlafaxine HCl (Effexor) 75 mg BID PO Last administered on 09/23/18 19:48; Start 09/21/18 at 21:00; Stop 09/23/18 at 23:00; Status DC Venlafaxine HCl (Effexor) 75 mg DAILY PO Last administered on 09/26/18at 08:05; Start 09/24/18 at 09:00; Stop 09/26/18 at 12:00; Status DC Duloxetine HCl (Cymbalta) 30 mg DAILY PO Last administered on 09/28/18at 08:26; Start 09/22/18 at 09:00; Stop 09/28/18 at 13:31; Status DC Duloxetine HCl (Cymbalta) 60 mg DAILY PO ; Start 09/30/18 at 09:00; Stop 09/30/18 at 09:00; Status DC Ropinirole HCl (Requip) 0.5 mg TID PO Last administered on 09/28/18at 08:27; Start 09/24/18 at 14:00; Stop 09/28/18 at 13:31; Status DC Insulin Glargine (Lantus) 30 units BID SQ Last administered on 09/28/18at 08:58; Start 09/25/18 at 21:00; Stop 09/28/18 at 13:31; Status DC Insulin Human Lispro (HumaLOG) 18 units TIDAC SQ Last administered on 09/28/18at 12:16; Start 09/25/18 at 16:30; Stop 09/28/18 at 13:31; Status DC Aripiprazole (Abilify) 2 mg DAILY PO Last administered on 09/28/18at 08:26; Start 09/26/18 at 09:00; Stop 09/28/18 at 13:31; Status DC Active Scripts Active Reported Requip (Ropinirole Hcl) 0.5 Mg Tablet 0.5 Mg PO TID Robitussin Cough-Chest Dm Liq (Guaifenesin/Dextromethorphan) 237 Ml Liquid 10 Ml PO PRN Q4HRS PRN Analgesic [place] (Methyl Salicylate/Menthol) 28 Gm Oint...g. 1 Wilfredo TP PRN Q6HRS PRN Milk Of Magnesia (Magnesium Hydroxide) 400 Mg/5 Ml Oral.susp 2,400 Mg PO PRN QHS PRN Cymbalta (Duloxetine Hcl) 60 Mg Capsule.dr 90 Mg PO DAILY Abilify (Aripiprazole) 2 Mg Tablet 2 Mg PO DAILY Arthritis Pain Relief (Capsaicin) 42.5 Gm Cream..g. 42.5 Gm TP PRN BID PRN Guaifenesin Dm Syrup (Guaifenesin/Dextromethorphan) 5 Ml Syrup 10 Ml PO PRN Q4HRS PRN Zofran (Ondansetron Hcl) 4 Mg Tablet 4 Mg PO PRN TID PRN Mag-Al Plus Xs Suspension (Mag Hydrox/Al Hydrox/Simeth) 30 Ml Oral.susp 15 Ml PO PRN Q4HRS PRN Artificial Tears Eye Drops (Dextran 70/Hypromellose) 15 Ml Drops 1 Drop OP PRN QID PRN Acetaminophen 500 Mg Tablet 500 Mg PO PRN Q4HRS PRN Effexor Xr (Venlafaxine Hcl) 75 Mg Cap.er.24h 75 Mg PO DAILY Effexor Xr (Venlafaxine Hcl) 150 Mg Cap.er.24h 150 Mg PO DAILY Potassium Chloride 10 Meq Tablet.er 10 Meq PO DAILY Meloxicam 15 Mg Tablet 15 Mg PO DAILY Lyrica (Pregabalin) 50 Mg Capsule 50 Mg PO TID Levothyroxine Sodium 50 Mcg Tablet 50 Mcg PO DAILYAC Levothyroxine Sodium 200 Mcg Tablet 200 Mcg PO DAILYAC Januvia (Sitagliptin Phosphate) 100 Mg Tablet 100 Mg PO DAILY Furosemide 40 Mg Tablet 40 Mg PO DAILY Fexofenadine Hcl 180 Mg Tablet 60 Mg PO QHS Famotidine 20 Mg Tablet 20 Mg PO QHS Eliquis (Apixaban) 2.5 Mg Tablet 2.5 Mg PO BID Daily Vitamin + Iron (Multivitamins With Iron) 1 Each Tablet 1 Each PO BID Carbidopa-Levo 25-100 Mg Odt (Carbidopa/Levodopa) 1 Each Tab.rapdis 1.5 Tab PO QID Biotene Moisturizing Mouth (Saliva Stimulant Agents Comb.3) 44.3 Ml [place] 1 Wilfredo MM QID Baclofen 10 Mg Tablet 10 Mg PO BID Aspirin 81 Mg Tab.chew 81 Mg PO DAILY Novolog Flexpen (Insulin Aspart) 100 Unit/1 Ml Insuln.pen 18 Unit SQ TIDAC Levemir Flextouch (Insulin Detemir) 100 Unit/1 Ml Insuln.pen 30 Unit SQ BID Duoneb 0.5-3(2.5) Mg/3 Ml (Albuterol/Ipratropium) 3 Ml Ampul.neb 3 Ml NEB TID I have reviewed the current psychotropics carefully including drug interactions. Risk benefit ratio favors no change other than as noted in my dictated progress note. Diagnosis: Problems: (1) Parkinson's disease (2) Impulse control disorder (3) Major depressive disorder, recurrent episode (4) Anxiety disorder MONICA MCWILLIAMS MD September 28, 2018 18:00
--- NOTE | 2018-09-29 22:41 | DS ---
DATE OF DISCHARGE: 09/28/2018 DISCHARGE SUMMARY/PSYCHIATRIC PROGRESS NOTE This late entry 09/28/2018 covers elements not covered in my initial note. REASON FOR ADMISSION: Please refer to the admission history for details. Briefly, the patient is a 68-year-old female referred to us from [facility], referred by her primary care physician, on account of increasing agitation after the patient was hitting her head against the wall when the staff would encourage her to do her own ADLs. She is argumentative, putting herself on the floor when she would not get her way. Behaviors were deemed dangerous, unmanageable, out of control and she was referred for inpatient psychiatric stabilization. SIGNIFICANT FINDINGS AND CLINICAL COURSE: Following admission, the patient was seen daily individually by myself from a psychiatric standpoint, medical followup with Dr. Ferreira. She was depressed, anxious, paranoid at admission. Adjustments were made in her psychotropics and she seemed to respond to a combination of Cymbalta [address] of the Effexor and the Cymbalta was due to increase to 60 mg a day on 09/30/2018. Abilify was added 2 mg a day to augment the Cymbalta and for her psychotic symptoms. Further discussions were held. 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 The patient was still fixated on her toy monkey that she would always keep with her, but she spent a fair amount of time working on crossword pulses, which were positive. REVIEW OF SYSTEMS: Prior to discharge on 09/28/2018, ambulation impaired, in wheelchair. No CV, , pulmonary, eye, ENT system symptoms on review. MENTAL STATUS EXAM: Oriented to herself and situation. Speech is coherent, abstraction fair, computation impaired, language function intact, attention span short. Mood and affect improved. No suicidal or homicidal ideation prior to discharge. FINAL DIAGNOSES: Major depressive disorder, recurrent with psychotic features, in partial remission; anxiety disorder, unspecified; impulse control disorder, unspecified; psychotic disorder, unspecified. Rest unchanged from admission. DISCHARGE MEDICATIONS: Please refer to the MRAD. DISCHARGE INSTRUCTIONS: [facility]. Time for discharge day management greater than 30 minutes. MAN Natali MCWILLIAMS MD DR: REAL/rosanna JOB#: [id number] / [id number]
--- NOTE | 2018-09-29 23:00 | PN ---
DATE: 09/27/2018 PSYCHIATRIC PROGRESS NOTE This late entry 09/27/2018 covers elements not covered in my initial note 09/27/2018. SUBJECTIVE: I met with the patient in the evening of 09/27/2018. Overall, the patient remains somewhat anxious, withdrawn at times. She slept 5-3/4 hours previous evening, but has had no behaviors, not aggressive or hitting her head on the wall like she did prior to admission. She was trying to do more things by herself and actively working on crossword puzzles. REVIEW OF SYSTEMS: Ambulation impaired, in wheelchair. No CV, , pulmonary, eye, ENT system symptoms on review. She had a toy monkey with her as I met with her in the evening. MENTAL STATUS EXAM: Oriented to herself and situation. Speech is coherent, has some latency. Abstraction fair, computation impaired, language function intact, attention span short. Mood and affect is overall improved. LABORATORY DATA: Reviewed. IMPRESSION: Unchanged from initial note. PLAN: No change from initial note. MONICA MCWILLIAMS MD DR: REAL/rosanna JOB#: [id number] / [id number]
[2018-09-30] MEDS ORDERED: DULoxetine HCL 60 MG CAPSULE.DR PO SCH (09:00)
== END 2018-09-28 12:30 | DRG 885 ==
LOC: ER 19:17 → GEROPSY 22:11
PROVIDERS: ADMIT Psychiatry & Neurology Psychiatry; ATTEND Psychiatry & Neurology Psychiatry
DX: F33.3 Major depressive disorder, recurrent, severe with psychotic symptoms (principal); Z68.41 Body mass index [BMI] 40.0-44.9, adult; G20 Parkinson's disease; M79.7 Fibromyalgia; E78.5 Hyperlipidemia, unspecified; J44.9 Chronic obstructive pulmonary disease, unspecified; I48.91 Unspecified atrial fibrillation; F41.9 Anxiety disorder, unspecified; E66.01 Morbid (severe) obesity due to excess calories; E03.9 Hypothyroidism, unspecified; E11.9 Type 2 diabetes mellitus without complications; F63.9 Impulse disorder, unspecified; I10 Essential (primary) hypertension; K21.9 Gastro-esophageal reflux disease without esophagitis; Z91.81 History of falling; Z98.41 Cataract extraction status, right eye; Z98.42 Cataract extraction status, left eye
CPT/HCPCS: 36415; 70450; 80053; 80061; 80307; 81001; 82306; 82947; 83036; 83540; 83550; 83735; 84436; 84443; 84480; 85025; 86592; 87086; 93005; 94640; G0480; J1815; J7620